=== PATIENT | female | born 1955 | race Caucasian/White ===

== ENCOUNTER 2020-04-11 13:04 | Outpatient (REF) | payer MEDICARE, MEDICAID, SELFPAY | END 2020-04-11 13:05 | disposition home or self-care (01) | LOC: HO.HAP 13:04 | PROVIDERS: Visit Provider Internal Medicine | DX: Z46.1 Encounter for fitting and adjustment of hearing aid (principal) | CPT/HCPCS: V5266 ==

== ENCOUNTER 2020-07-14 09:08 | Outpatient (REF) | payer MEDICARE, MEDICAID, SELFPAY | END 2020-07-14 09:09 | disposition home or self-care (01) | LOC: HO.HAP 09:08 | PROVIDERS: Visit Provider Internal Medicine | DX: Z46.1 Encounter for fitting and adjustment of hearing aid (principal) | CPT/HCPCS: V5266 ==

== ENCOUNTER 2020-08-07 09:24 | Outpatient (REF) | payer MEDICARE, MEDICAID, SELFPAY ==
--- NOTE | 2020-08-07 09:48 | MHC.AU.P13 ---
Hearing Instrument Follow-Up- Binaural Date of Visit: 08/07/20 Right Ear: Calcine Furnace Loader: Phonak Model: VIRTO V50-312 CANAL Serial Number: [id number] Repair Warranty: EXP 02/04/19 Loss and Damage Warranty: EXP 02/04/19 Battery Size: 312 Type of Wax Guard: CERUSTOP Left Ear: Calcine Furnace Loader: Phonak Model: VIRTO V50-312 CANAL Serial Number: [id number] RepairWarranty: EXP 02/04/19 Loss and Damage Warranty: EXP 02/04/19 Battery Size: 312 Type of Wax Guard: CERUSTOP Follow-Up Summary: Patient dropped off hearing aids reporting excessive battery drain in both - 2-3 days. Both aids sent to [facility] for repair. Bill to [place] when in. Signature: Provider: WARREN Arguelles-HIS
== END 2020-08-07 09:25 | disposition home or self-care (01) ==
LOC: HO.HAP 09:24
PROVIDERS: Visit Provider Internal Medicine
DX: Z13.89 Encounter for screening for other disorder (principal)

== ENCOUNTER 2020-08-16 08:42 | Outpatient (REF) | payer MEDICARE, MEDICAID, SELFPAY | END 2020-08-16 08:43 | disposition home or self-care (01) | LOC: HO.HAP 08:42 | PROVIDERS: Visit Provider Internal Medicine | DX: Z46.1 Encounter for fitting and adjustment of hearing aid (principal) | CPT/HCPCS: V5014 ==

== ENCOUNTER 2020-10-13 09:27 | Outpatient (REF) | payer MEDICARE, MEDICAID, SELFPAY | END 2020-10-13 09:28 | disposition home or self-care (01) | LOC: HO.HAP 09:27 | PROVIDERS: Visit Provider Internal Medicine | DX: Z46.1 Encounter for fitting and adjustment of hearing aid (principal) | CPT/HCPCS: V5266 ==

== ENCOUNTER 2021-01-12 08:53 | Outpatient (REF) | payer MEDICARE, MEDICAID, SELFPAY ==
--- NOTE | 2021-01-12 10:04 | MHC.AU.AHA ---
Adult Audiological Evaluation Date of Visit: 01/12/21 Reason for Appointment: Long-standing history of asymmetrical hearing loss. Patient arrives today to determine if there has been a change in hearing. She has noticed increased difficulty understanding people on the phone. Previous Hearing Test Results: At this clinic on 02/02/2020- Mild to moderate mixed hearing loss in the right ear. Severe rising to moderate mixed hearing loss in the left ear. Medical History: Medical History: Rheumatoid Arthritis, Fibromyaglia, Asthma, Removal of one parathyroid in July 2019, Use of Hydroxychloroquine Sulfate (which is potentially ototoxic) Hearing Instrument History- Right Ear: Burlesque Dancer: PhonZenter Model: VIRTO V50-312 CANAL Serial Number: [id number] Battery Size: 312 Repair Warranty: EXP 02/04/19 Loss and Damage Warranty: EXP 02/04/19 Dispensed By: [facility] Date of Fittin01/10/17 Hearing Instrument History- Left Ear: Burlesque Dancer: Phonak Model: EmbedlyO V50-312 CANAL Serial Number: [id number] Battery Size: 312 Warranty: EXP 02/04/19 Loss and Damage Warranty: EXP 02/04/19 Dispensed By: [facility] Date of Fittin01/10/17 Otoscopy: Right Ear: Unremarkable Left Ear: Unremarkable Hearing Evaluation: Transducer(s) Used: Insert Earphones Method: Conventional Audiometry Stimuli Used: Pure Tones Right Ear: Description of Hearing: Severe rising to moderate mixed hearing loss Left Ear: Description of Hearing: Mild to moderate mixed hearing loss Speech Recognition Threshold (SRT): Method Used: Recorded Lists Stimuli Used: Spondee Words Right Ear: 60 dBHL Left Ear: 30 dBHL Word Discrimination: Method: Recorded Lists Word Lists Used: NU-6/W-22 Right Ear: 100% at 100 dBHL Left Ear: 100% at 70 dBHL Most Comfortable Level (MCL): Right Ear: 100 dBHL Left Ear: 70 dBHL Aided Testing: Binaural aided word discrimination is 100% at 50 dBHL in soundfield Comparison: Compared to the most recent evaluation: Hearing is stable. Recommendations: Audiological re-evaluation in one year. See Hearing Aid Follow-Up note for more information. Patient reports feedback (buzzing sound) when she places the phone by her left ear. 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 Re-ran feedback commercial portfolio manager. Patient will let us know if problem persists. No additional programming changes made to the hearing aids. Diagnosis: Primary Diagnosis: H90.6 Mixed Hearing Loss, Bilateral Services Performed: Comprehensive Audiological Evaluation (CPT 69770) Signature: Provider: Luis M Cruz, CCC-A
--- NOTE | 2021-01-12 10:05 | MHC.AU.HFU ---
Hearing Instrument Follow-Up- Binaural Date of Visit: 01/12/21 Right Ear: Team Facilitator: Phonak Model: VIRTO V50-312 CANAL Serial Number: [id number] Repair Warranty: EXP 02/04/19 Loss and Damage Warranty: EXP 02/04/19 Battery Size: 312 Type of Wax Guard: CERUSTOP Dispensed By: [facility] Date of Fittin01/10/17 Left Ear: Team Facilitator: Phonak Model: VIRTO V50-312 CANAL Serial Number: [id number] Repair Warranty: EXP 02/04/19 Loss and Damage Warranty: EXP 02/04/19 Battery Size: 312 Type of Wax Guard: CERUSTOP Dispensed By: [facility] Date of Fittin01/10/17 Follow-Up Summary: Patient was seen today for audiological re-evaluation (see separate report for details). Hearing aid maintenance performed. Wax guards replaced. Vents cleaned. Microphones vacuumed. Small amount of debris vacuumed from battery compartments. Hearing aids are amplifying clearly. Patient reports feedback (buzzing sound) when she places the phone by her left ear. Feedback team manager was incomplete on the left side in [employer]. Re-ran feedback team manager. Patient will let us know if problem persists. No additional programming changes made to the hearing aids. Patient also reports that since her hearing aids were sent for repair in July, they battery drain has been better, but still not as good as originally. She is getting 4-5 days out of the batteries as opposed to 1-2 days just prior to sending the hearing aids out. Discussed that 5 days for a 312 battery is within normal expectations. She will let us know if the batteries start to drain in less than 5 days again. Also discussed that she may be eligible for new hearing aids in December of 2021. Discussed the new Bluetooth capabilities, which would help improve her listening on the cell phone and prevent feedback caused by holding the phone up to her ear. Recommendations: Recommendations: Hearing instrument follow-up or maintenance as needed. Diagnosis Code(s): Primary Diagnosis: H90.6 Mixed Hearing Loss, Bilateral Signature: Provider: Luis M Cruz, [facility]
== END 2021-01-12 08:54 | disposition home or self-care (01) ==
LOC: HO.SH 08:53
PROVIDERS: Visit Provider Internal Medicine
DX: Z46.1 Encounter for fitting and adjustment of hearing aid (principal); H90.6 Mixed conductive and sensorineural hearing loss, bilateral
CPT/HCPCS: 92557; 92593; V5266

== ENCOUNTER 2021-04-16 15:23 | Outpatient (REF) | payer MEDICARE, MEDICAID, SELFPAY | END 2021-04-16 15:24 | disposition home or self-care (01) | LOC: HO.HAP 15:23 | PROVIDERS: Visit Provider Internal Medicine | DX: Z46.1 Encounter for fitting and adjustment of hearing aid (principal); H90.6 Mixed conductive and sensorineural hearing loss, bilateral | CPT/HCPCS: V5266 ==

== ENCOUNTER 2021-07-17 10:28 | Outpatient (REF) | payer MEDICARE, MEDICAID, SELFPAY | END 2021-07-17 10:29 | disposition home or self-care (01) | LOC: HO.HAP 10:28 | PROVIDERS: Visit Provider Internal Medicine | DX: Z46.1 Encounter for fitting and adjustment of hearing aid (principal); H90.6 Mixed conductive and sensorineural hearing loss, bilateral | CPT/HCPCS: V5266 ==

== ENCOUNTER 2021-08-29 10:51 | Outpatient (REF) | payer MEDICARE, MEDICAID, SELFPAY | END 2021-08-29 10:52 | disposition home or self-care (01) | LOC: HO.HAP 10:51 | PROVIDERS: Visit Provider Internal Medicine | DX: Z46.1 Encounter for fitting and adjustment of hearing aid (principal); H90.6 Mixed conductive and sensorineural hearing loss, bilateral | CPT/HCPCS: 92592 ==

== ENCOUNTER 2021-09-13 09:22 | Outpatient (REF) | payer MEDICARE, MEDICAID, SELFPAY | END 2021-09-13 09:23 | disposition home or self-care (01) | LOC: HO.HAP 09:22 | PROVIDERS: Visit Provider Internal Medicine | DX: Z46.1 Encounter for fitting and adjustment of hearing aid (principal); H90.6 Mixed conductive and sensorineural hearing loss, bilateral | CPT/HCPCS: V5014 ==

== ENCOUNTER 2021-10-23 09:49 | Outpatient (REF) | payer MEDICARE, MEDICAID, SELFPAY | END 2021-10-23 09:50 | disposition home or self-care (01) | LOC: HO.HAP 09:49 | PROVIDERS: Visit Provider Internal Medicine | DX: Z46.1 Encounter for fitting and adjustment of hearing aid (principal); H90.6 Mixed conductive and sensorineural hearing loss, bilateral | CPT/HCPCS: V5266 ==

== ENCOUNTER → 2021-11-22 09:59 | Outpatient (BNVA) | payer OTHER, SELFPAY | PROVIDERS: PCP Internal Medicine; Visit Provider Physician Assistant Medical | DX: S80.212A Abrasion, left knee, initial encounter (principal); S60.512A Abrasion of left hand, initial encounter; S60.511A Abrasion of right hand, initial encounter; W01.0XXA Fall on same level from slipping, tripping and stumbling without subsequent striking against object, initial encounter; M25.522 Pain in left elbow | CPT/HCPCS: 73080; 73564; 99204 ==

== ENCOUNTER → 2021-11-28 09:18 | Outpatient (BNVA) | payer OTHER, SELFPAY | PROVIDERS: PCP Internal Medicine; Visit Provider Physician Assistant | DX: M25.562 Pain in left knee (principal); M25.522 Pain in left elbow; M79.632 Pain in left forearm; Z91.81 History of falling | CPT/HCPCS: 99204 ==

== ENCOUNTER → 2021-12-07 10:17 | Outpatient (BNVA) | payer OTHER, SELFPAY | PROVIDERS: PCP Internal Medicine; Visit Provider Physician Assistant | DX: M25.562 Pain in left knee (principal); M25.522 Pain in left elbow | CPT/HCPCS: 73610; 99215 ==

== ENCOUNTER 2021-12-13 08:30 | Outpatient (RCR) | payer OTHER, MEDICARE, MEDICAID, SELFPAY ==
--- NOTE | 2021-11-30 12:49 | MHC.OT.OEV ---
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 Pt sent her to [facility], XR taken.. Pt now out of work until MD follow up, referred to OT and PT PT appt next Friday. Significant Medical History: Osteopenia, OA, RA, Fibromyalgia, asthma Precautions/Contraindications: Patient Goals: Not be sore and be able to lift things Hand Dominance: Right Observations: QuickDASH Score: 56 Prior Level of Function and Occupation Self Care, Employment, Leisure: Indep in all areas.. Reports prior weakness on right > left guard range, 2 hrs/day [employer] Living Situation, Family and/or Social Support: , 34 and 24 yo home Current Level of Function and Occupation Self Care, Employment, Leisure: Minimal difficult with ADL Mod -severe diff with homemaking, sweeping , lifting groceries, knitting, Sleep: Mild difficulty falling asleep and staying asleep...Arm and leg pain Driving: Diff holding steering wheel with left Vision: Glasses Balance: Pain Assessment Pain Score: 6 Pain Scale Used: Numeric (0 - 10) Pain Location and Description: 3-6 left forearm Aggravating Factors: Lifting, moving the arm wrong. wearing elastic watch, arm swells and pain Alleviating Factors: Resting the arm Skin and Soft Tissue Assessment Skin and Soft Tissue: Comments: Avoiding elbow ext Nerve assessment Ulnar Nerve: Not Tested Median Nerve: Not Tested Radial Nerve: Not Tested Comments: Sensory Assessment Temperature: Light Touch: WNL Proprioception: Vibration: Comments: Edema Assessment Upper Extremity: WNL Lower Extremity: Comments: Dexterity Assessment Dexterity: Not Tested Comments: Special Tests Comments: AROM(PROM) Strength Cervical Cervical Flexion: Cervical Extension: Cervical Lateral Flexion: Cervical Rotation: Comments: Shoulder Flexion: Extension: Abduction: Internal Rotation: External Rotation: Comments: B/L WFL Flexion: Extension: Abduction: Internal Rotation: External Rotation: Comments: WFL Elbow Flexion: Extension: 15 deg Pronation: Supination: Comments: WFL Flexion: Extension: Pronation: Supination: Comments: Wrist Flexion: Extension: Ulnar Deviation: Radial Deviation: Comments: Flexion: Extension: Ulnar Deviation: Radial Deviation: Comments: Thumb Thumb CMC Flexion: Thumb MCP Flexion: Thumb IP Flexion: Radial Abduction: Palmar Abduction: [employer] (Kapandji 0-10): Comments: WNL Digits Index MCP: PIP: DIP: Long MCP: PIP: DIP: Ring MCP: PIP: DIP: Small MCP: PIP: DIP: Comments: WFL Gross Grasp: R 45 lb L 15 lb Lateral Pinch: Two-Point Pinch: Three-Jaw Shahram: Comments: 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 Patient demonstrates Patient verbalizes Barriers to Learning: None Readiness for Learning: Accepting Who was educated? 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 Pt is 8 days s/p fall on her left side . 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
--- NOTE | 2021-12-13 10:37 | MHC.OT.DC ---
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 Pt is indep with her HEP and resuming her homemaking activities Goals met Electronically Signed By: Shirley Retana OT CHT CLT Reviewed/agree with student documentation: N/A Therapist: Please Sign and return to therapist, thank you for your referral.
== END 2022-02-06 16:48 | disposition home or self-care (01) ==
LOC: HO.OT 08:30
PROVIDERS: PCP Internal Medicine; Visit Provider Physician Assistant Medical
DX: S56.912D Strain of unspecified muscles, fascia and tendons at forearm level, left arm, subsequent encounter (principal); M25.562 Pain in left knee
CPT/HCPCS: 97035; 97110; 97140; 97165

== ENCOUNTER → 2021-12-24 08:53 | Outpatient (BNVA) | payer OTHER, SELFPAY | PROVIDERS: PCP Internal Medicine; Visit Provider Physician Assistant Medical | DX: M25.562 Pain in left knee (principal); M25.522 Pain in left elbow; M79.632 Pain in left forearm; Z91.81 History of falling | CPT/HCPCS: 99213 ==

== ENCOUNTER 2022-01-04 07:51 | Outpatient (REF) | payer MEDICARE, MEDICAID, SELFPAY ==
--- NOTE | 2022-01-04 14:54 | MHC.AU.MED ---
Medical Clearance for Hearing Instrumentation Date: 01/04/22 Patient Name: Adela Canchola Date of : 1955 Primary Care Provider: Referring Provider: Liz Castro MD We have seen your patient on 01/04/22 and have determined that they are a candidate for amplification (See accompanying report). Specifically, they would benefit from: Hearing aid use in both ears There is a statute that addresses Medical Evaluation Requirements prior to fitting a patient with a hearing aid. According to [place] statute 265 CMR:6.03(1), (a) General. Except as provided in 265 CMR 6.03(1)(b), a legal process specialist shall not sell a hearing aid unless the prospective user has presented to the legal process specialist a written statement signed by a licensed physician that states that the patient's hearing loss has been medically evaluated and the patient may be considered a candidate for a hearing aid. The medical evaluation must have taken place within the preceding six months. Please note: Due to the [place] Statute referenced above, we cannot accept a signature other than that of a licensed physician. MANAGER CARDIAC and PA signatures cannot be accepted. I am in agreement with the above recommendation. There is no medical contraindication for hearing instrumentation. Physician Signature Date Physician Name (Printed)
--- NOTE | 2022-01-04 14:58 | MHC.AU.HAS ---
Hearing Aid Evaluation Date of Visit: 01/04/22 Historical Information: Description of Hearing: Left ear - Mild to moderately-severe mixed hearing loss Right ear - Severe to profound mixed hearing loss rising to moderately-severe at 8000 Hz Current personal amplification information, if applicable: Binaural 2017 Phonak Virto V 50-312 [id number] hearing aids Summary: Current aids are not meeting patient's communication needs and the batteries need to be changed approximately every 2-3 days. New rechargeable aids are recommended Hearing Aid Prescription: Based on the individual?s shared listening needs, communication environments, dexterity, desire for connectivity, and personal preferences, the following prescription for amplification has been made: Right ear: Historic Sites Registrar: ReSound Model: ITC-R Battery Size: Rechargeable Color: [place] with clear shell Left ear:Left ear prescription to be same as Right Hearing Aid above: Historic Sites Registrar: ReSound Model: ITC-R Battery Size: Rechargeable Color: [place] with clear shell Plan of Care: Patient wishes to purchase hearing aids as prescribed Action Taken/Action Needed: [place] Impressions Taken Prior authorization to be requested Medical Clearance to be requested from PCP/ENT Hearing Instrument Fitting to be scheduled when materials arrive Primary Diagnosis: H90.6 Mixed Hearing Loss, Bilateral Signature: Provider: Luis M Worrell, CCC-A
--- NOTE | 2022-01-25 07:33 | MHC.AU.AHA ---
Adult Audiological Evaluation Date of Visit: 01/04/22 Rating Specialist Used: Not Applicable Reason for Appointment: Audiologic re-evaluation to determine if a change in hearing has occurred as Adela's current hearing aids are weak, not meeting her communication needs, and the battery life have become very short. Previous Hearing Test Results: 01/12/2021 [facility] Right Ear - Severe rising to moderate mixed hearing loss with 100% speech understanding at 100 dB HL Left Ear - Mild to moderate mixed hearing loss with 100% speech discrimination at 70 dB HL Medical History: Medical History: Rheumatoid Arthritis, Fibromyaglia, Asthma, Removal of one parathyroid in July 2019, Use of Hydroxychloroquine Sulfate (which is potentially ototoxic) Medication List: Hydrochloriquine, Plaquenil, Omeprazole, Flovent Hearing Instrument History- Right Ear: Manufacturing Specialist: ClickShift Model: [place] V 50-312 Serial Number: [id number] Battery Size: 312 Repair Warranty: Loss and Damage Warranty: Dispensed By: [facility] Date of Fittin01/10/2017 Hearing Instrument History- Left Ear: Manufacturing Specialist: Notifixiousak Model: [place] V 50-312 Serial Number: [id number] Battery Size: 312 Warranty: Loss and Damage Warranty: Dispensed By: [facility] Date of Fittin01/10/2017 Otoscopy: Right Ear: Unremarkable Left Ear: Unremarkable Tympanometry: Tympanometry performed due to: History of conductive hearing loss Right Ear: Hypercompliant Middle Ear System (Type Ad) Left Ear: Hypercompliant Middle Ear System (Type Ad) Hearing Evaluation: Transducer(s) Used: Insert Earphones Bone Conduction Method: Conventional Audiometry Stimuli Used: Pure Tones Right Ear: Description of Hearing: Severe to profound mixed hearing loss 250-2000 Hz, rising to a moderately-severe mixed loss 0541-1229 Hz Left Ear: Description of Hearing: Mild to moderately-severe mixed hearing loss Speech Recognition Threshold (SRT): Method Used: Monitored Live Voice Stimuli Used: Spondee Words Right Ear: 60 dB HL Left Ear: 25 dB HL Word Discrimination: Method: Recorded Lists Word Lists Used: NU-6 Right Ear: 84% at 100 dB HL Left Ear: 96% at 65 dB HL Comparison: Compared to most recent evaluation: Hearing thresholds are stable for both ears. The right ear speech discrimination ability has decreased slightly. Recommendations: Trial with new amplification is recommended. Medical clearance from a physician is required before fitting. Hearing Aid Fitting will be scheduled when all materials arrive. Audiological re-evaluation in one year. Will send a reminder card. Diagnosis: Primary Diagnosis: H90.6 Mixed Hearing Loss, Bilateral Services Performed: Comprehensive Audiological Evaluation (CPT 26863) Tympanometry (CPT 51587) Signature: Provider: Luis M Worrell, THANIA-A
== END 2022-01-04 07:52 | disposition home or self-care (01) ==
LOC: HO.SH 07:51
PROVIDERS: Visit Provider Internal Medicine
DX: H90.6 Mixed conductive and sensorineural hearing loss, bilateral (principal)
CPT/HCPCS: 92557; 92567; 92591; V5275

== ENCOUNTER 2022-01-08 09:00 | Outpatient (RCR) | payer OTHER, SELFPAY ==
[2021-12-07 13:08] VITALS: BP 125/71; PULSE 82; O2SAT 93
--- NOTE | 2021-12-07 14:48 | MHC.PT.EP ---
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 SHE RESIDES W HER SPOUSE IN A 1 LEVEL HOME AND IS CURRENTLY OOW- SHE NOTES SHE HAS A H/O ARTHRITIS AND WAS ABLE TO PERFORM HER ADLs/ WORK DUTIES W RESPECT TO HER SXS PRIOR TO THIS INJURY. OBJECTIVE FINDINGS: LIMITED AROM LEFT HIP IR/ KNEE/ ANKLE DF, TIGHT PSOAS AND HS/CALF MM DAVE; DECR STRENGTH IN PROX / LUMBOPELVIC AND Lt LE, PAIN IN LEFT KNEE ,AND RESOLVING CONTUSION Lt ANT WATSON. FUNCTIONALLY, Pt DISPLAYS ALTERED AMB - SHE HAS COMPENSATORY GAIT AND TENDS TO FOREFOOT WT BEAR LEFT (ABSENT HEEL STRIKE), DECR STANDING GRISELDA( WT SHIFTS Rt), DIFFIC W TRANSFERS, BED MOB, SLEEPING/ SUPINE POSITIONING, AND DECR GRISELDA TO ADLs REQ INCR INCR LEs WT BEARING LEFT LE . Pt IS A VERY GOOD PT CANDIDATE TO ADDRESS THE ABOVE FINDINGS, PAIN MGMT, DEV A PROGR HEP, IMPROVE GAIT AND MAXIMIZING FUNCTIONAL INDEPENDENCE. Frequency and Duration: The patient will be seen 2 x WK x 5 WKS Short Term Goals: *Pt'S LEFT KNEE PAIN DECR TO 2-3/10 W REG ADLs IN 2 WKS *Pt DEMON IMPROVED LEFT KNEE / HIP/ ANKLE AROM-> TERMINAL EXTENSION IN 3 WKS *Pt DEMON IMPROVED GAIT MECH ON LEVEL AND STAIRS IN 2 WKS Experimental Welder Goals: Pt INDEP W HEP PROGRESSION AND SELF-SX MGMT STRATEGIES IN 5 WKS Pt RESUME REG ADLs EVIDENT W IMPROVED LEFI SCORE BY 5-8 POINTS (AT EVAL 21/80 ) IN 5 WKS Pt INCR LE STRENGTH BY 1 GRADE IN 5 WKS Treatment Plan: Modalities to reduce pain, spasms and effusion. Manual therapy to restore motion and function. Therapeutic exercise to improve strength and flexibility. Neuromuscular re-education for posture and balance. Therapeutic activities to return to functional activities of daily living. Electronically signed by: Zoila Castañeda PT Please sign and return to therapist. Thank you for your referral.
--- NOTE | 2022-01-09 10:01 | MHC.PT.DC ---
[facility] [place] Office [place] Office [place] Office [address] Laly Giron [address] [phone] F: [phone] F: [phone] F: [phone] F: [phone] Physical Therapy Discharge Report Diagnosis: LEFT KNEE STRAIN Date of Surgery: Date of Evaluation: 12/07/21 Date of Discharge: 01/08/22 Treatments to Date: 10 Cancellations to Date: No Shows to Date: Discharge Status: Achieved Goals Improved Function Independent with HEP Discharge Summary: Pt HAS PROGRESSED NICELY IN PT AND HAS MET HER PT GOALS AT THIS TIME, ADDRESSING HER LEFT KNEE PAIN- SHE IS INDEP AND COMPLIANT W HEP AND DEMON EFFICIENT GAIT/ FUNCTIONAL MOBILITY. Electronically signed by: Zoila Castañeda,PT Please sign and return to therapist. Thank you for your referral.
== END 2022-01-09 10:05 | disposition home or self-care (01) ==
LOC: HO.PT 09:00
PROVIDERS: PCP Internal Medicine; Visit Provider Physician Assistant Medical
DX: S56.91 Strain of unspecified muscles, fascia and tendons at forearm level (principal); M25.562 Pain in left knee
CPT/HCPCS: 97110; 97116; 97162; 97530

== ENCOUNTER 2022-02-04 07:47 | Outpatient (REF) | payer MEDICARE, MEDICAID, SELFPAY ==
--- NOTE | ~2022-02-04 | XR_ITS ---
EXAMINATION: XR KNEE AP STANDING CLINICAL INFORMATION: Knee pain COMPARISON: Radiographs left knee 11/22/2021, right knee radiographs 02/16/2011. TECHNIQUE: AP bilateral standing view of the knees was obtained. FINDINGS: Right: Mild narrowing medial knee joint compartment with borderline marginal osteophytes medial femoral condyle and tibial plateau. No erosion or chondrocalcinosis. No subchondral sclerosis. Bony mineralization normal. Mild spurring or mineralization near proximal medial collateral ligament which may be related to remote injury. Findings are new from prior radiographs 2010. Left: No joint narrowing, erosions, or chondrocalcinosis. Normal mineralization. No destructive process. There is small corticated density overlying the anterior lateral prepatellar soft tissues, similar to prior study. XR/XR knee standing BI IMPRESSION: Right: -Mild narrowing medial knee joint compartment, new from prior imaging 2010. -Spurring versus mineralization near the proximal medial collateral ligament, likely related to remote sprain, new from prior imaging 2010. Left: -No joint narrowing or erosion.
== END 2022-02-04 07:48 | disposition home or self-care (01) ==
LOC: HO.HOSX 07:47
PROVIDERS: Visit Provider Physician Assistant
DX: S80.12XA Contusion of left lower leg, initial encounter (principal)
CPT/HCPCS: 73565; 99202

== ENCOUNTER → 2022-02-14 09:24 | Outpatient (BNVA) | payer OTHER, SELFPAY | PROVIDERS: PCP Internal Medicine; Visit Provider Physician Assistant | DX: M79.662 Pain in left lower leg (principal); Z91.81 History of falling | CPT/HCPCS: 99214 ==

== ENCOUNTER → 2022-03-15 08:54 | Outpatient (BNVA) | payer OTHER, SELFPAY | PROVIDERS: PCP Internal Medicine; Visit Provider Physician Assistant | DX: M79.662 Pain in left lower leg (principal); Z91.81 History of falling | CPT/HCPCS: 99213 ==

== ENCOUNTER → 2022-03-20 08:34 | Outpatient (BNVA) | payer OTHER, SELFPAY | PROVIDERS: PCP Internal Medicine; Visit Provider Anesthesiology | DX: S80.12XA Contusion of left lower leg, initial encounter (principal); M17.12 Unilateral primary osteoarthritis, left knee; M76.32 Iliotibial band syndrome, left leg | CPT/HCPCS: 99202 ==

== ENCOUNTER → 2022-03-21 15:06 | Outpatient (BNVA) | payer OTHER, SELFPAY | PROVIDERS: PCP Internal Medicine; Visit Provider Physician Assistant | DX: M79.662 Pain in left lower leg (principal); Z91.81 History of falling | CPT/HCPCS: 99213 ==

== ENCOUNTER 2022-03-27 14:28 | Outpatient (REF) | payer MEDICARE, MEDICAID, SELFPAY ==
--- NOTE | 2022-03-27 15:12 | MHC.AU.HFA ---
Hearing Instrument Fitting- Adult- Binaural Date of Visit: 03/27/22 Hearing Instruments Dispensed: Right Ear: Raw Mill Operator: ReSound Model: HS RT7 ITE-DWC-HP Serial Number: [id number] Repair Warranty: 04/07/2025 Loss and Damage Warranty: 04/07/2025 Service Plan: 03/27/2023 Battery Size: Rechargeable Color: [place] with clear shell Type of Wax Guard: ReSound Wax Guards Left Ear: Raw Mill Operator: ReSound Model: HS RT7 ITE-DWC-MP Serial Number: [id number] Repair Warranty: 04/07/2025 Loss and Damage Warranty: 04/07/2025 Service Plan: 03/27/2023 Battery Size: Rechargeable Color: [place] with clear shell Type of Wax Guard: ReSound Wax Guards Summary of Fitting: Feedback calibration run. Verifit performed and levels adjusted to better reach targets. Patient still felt like the right side was too loud and the left side was too soft. Brought the right side down by 5 and left side up by 3, per patient's feedback. Patient was pleased with the adjustments. Patient initially reported that when she talked or I talked, she could feel a vibration in her right ear. After adjustments, this was lessened, and by the end of the appointment she did not perceive this anymore. Instructed patient to let us know if this continues. Hearing aid care and maintenance were discussed and practiced. Patient does not have a phone that can support Bluetooth at the moment, but is planning on getting one in the near future. She will let us know if she needs assistance in setting up Bluetooth. Recommendations: Patient is an experienced hearing aid user and will contact us if follow-up is needed. Diagnosis Code(s): Primary Diagnosis: H90.3 Bilateral Sensorineural Hearing Loss Signature: Provider: Luis M Cruz, CCC-A
== END 2022-03-27 14:29 | disposition home or self-care (01) ==
LOC: HO.HAP 14:28
PROVIDERS: Visit Provider Internal Medicine
DX: Z46.1 Encounter for fitting and adjustment of hearing aid (principal); H90.3 Sensorineural hearing loss, bilateral
CPT/HCPCS: V5011; V5020; V5160; V5259

== ENCOUNTER 2022-04-15 10:07 | Outpatient (REF) | payer MEDICARE, MEDICAID, SELFPAY ==
[2022-04-15 11:59] LABS: Anion Gap 16 (12-20); Blood Urea Nitrogen 12 mg/dL (9-16); Calcium 9.6 mg/dL (8.4-10.2); Carbon Dioxide 28 mmol/L (22-29); Chloride 103 mmol/L (96-108); Estimated Glomerular Filt Rate > 60; Sodium 142 mmol/L (135-145)
== END 2022-04-15 10:08 | disposition home or self-care (01) ==
LOC: HO.HMGCLDS 10:07
PROVIDERS: Absent Provider Internal Medicine Hypertension Specialist; PCP Internal Medicine; Visit Provider Internal Medicine
DX: R31.29 Other microscopic hematuria (principal)
CPT/HCPCS: 36415; 80051; 82310; 82565; 84520

== ENCOUNTER → 2022-05-15 08:34 | Outpatient (BNVA) | payer OTHER, MEDICARE, MEDICAID, SELFPAY | PROVIDERS: PCP Internal Medicine; Visit Provider Anesthesiology | DX: S80.12XA Contusion of left lower leg, initial encounter (principal); W01.0XXA Fall on same level from slipping, tripping and stumbling without subsequent striking against object, initial encounter; Y93.01 Activity, walking, marching and hiking; Y92.9 Unspecified place or not applicable; Y99.8 Other external cause status; M17.12 Unilateral primary osteoarthritis, left knee; G90.522 Complex regional pain syndrome I of left lower limb; G89.4 Chronic pain syndrome | CPT/HCPCS: 99212 ==

== ENCOUNTER → 2022-05-22 14:35 | Outpatient (BNVA) | payer OTHER, SELFPAY | PROVIDERS: PCP Internal Medicine; Visit Provider Physician Assistant | DX: G89.29 Other chronic pain (principal); M79.662 Pain in left lower leg | CPT/HCPCS: 99203 ==

== ENCOUNTER 2022-06-08 07:34 | Outpatient (REF) | payer MEDICARE, MEDICAID, SELFPAY ==
[2022-06-08 11:14] LABS: MANUAL DIFF FLAG NO
[2022-06-08 11:20] LABS: Basophils Percent Auto 0.5 % (0-2); Eosinophils Absolute Auto 0.2 X10*3/uL (0.0-0.4); Eosinophils Percent Auto 5.3 % (0-4); Hemoglobin 13.4 g/dl (12.0-16.0); Imm Gran Abs Auto 0.01 X10*3/uL (0.00-0.03); Imm Gran Pct Auto 0.3 % (0.0-0.4); Lymphocytes Absolute Auto 1.6 X10*3/uL (1.2-4.9); Lymphocytes Percent Auto 43.4 % (20-40); Mean Corpuscular HGB Conc 31.9 g/dl (31.0-35.0); Mean Corpuscular Hemoglobin 28.8 pg (27.0-33.0); Mean Corpuscular Volume 90.3 fL (80.0-98.0); Mean Platelet Volume 10.8 fL (9.4-12.3); Monocytes Absolute Auto 0.4 X10*3/uL (0.1-1.2); Monocytes Percent Auto 11.2 % (2-11); Neutrophils Absolute Auto 1.5 x10*3/uL (2.0-8.3); Neutrophils Percent Auto 39.3 % (45-73); Platelet Count 264 X10*3/uL (160-400); Red Blood Count 4.65 X10*6/uL (4.20-5.50); Red Cell Distribution Width 14.1 % (11.0-16.0); White Blood Count 3.8 X10*3/uL (4.8-10.8)
[2022-06-08 12:05] LABS: Alanine Aminotransferase 17 U/L (0-31); Albumin Level 4.1 g/dL (3.5-5.0); Alkaline Phosphatase 97 U/L (39-117); Anion Gap 12 (12-20); Aspartate Amino Transferase 17 U/L (5-31); Bilirubin Total 0.5 mg/dL (0.0-1.0); Blood Urea Nitrogen 12 mg/dL (9-16); Calcium 9.3 mg/dL (8.4-10.2); Carbon Dioxide 28 mmol/L (22-29); Chloride 108 mmol/L (96-108); Cholesterol 211 mg/dL; Estimated Glomerular Filt Rate > 60; Glucose Fasting 86 mg/dL (60-99); HDL Cholesterol 60 mg/dL; LDL Cholesterol Calculated 135 mg/dl; Potassium 4.7 mmol/L (3.3-5.1); Sodium 143 mmol/L (135-145); TSH reflex Free T4 2.97 uIU/mL (0.32-4.0); Total Protein 6.7 g/dL (6.5-8.0); Triglycerides 83 mg/dL
== END 2022-06-08 07:35 | disposition home or self-care (01) ==
LOC: HO.HMGCLDS 07:34
PROVIDERS: PCP Internal Medicine; Visit Provider Internal Medicine
DX: Z00.01 Encounter for general adult medical examination with abnormal findings (principal); K21.9 Gastro-esophageal reflux disease without esophagitis; J45.40 Moderate persistent asthma, uncomplicated; E66.09 Other obesity due to excess calories; M06.9 Rheumatoid arthritis, unspecified
CPT/HCPCS: 36415; 80053; 80061; 84443; 85025

== ENCOUNTER → 2022-06-20 08:36 | Outpatient (BNVA) | payer OTHER, SELFPAY | PROVIDERS: PCP Internal Medicine; Visit Provider Physician Assistant | DX: M79.662 Pain in left lower leg (principal); Z91.81 History of falling | CPT/HCPCS: 99214 ==

== ENCOUNTER 2022-07-25 14:10 | Outpatient (REF) | payer OTHER, SELFPAY ==
--- NOTE | 2022-07-25 08:15 | EMG_ITS ---
Left tibial and peroneal motor studies were performed. Left superficial peroneal, sural, and median and lateral plantar sensory studies were performed. Tibial H-reflex was obtained, and paraspinal muscles were tested with a needle. IMPRESSION: 1. 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 2. 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 MD DHIRAJ Boykin/EDDIE / [id number]
== END 2022-07-25 14:11 | disposition home or self-care (01) ==
LOC: HO.NEURO 14:10
PROVIDERS: PCP Internal Medicine; Visit Provider Physician Assistant Medical
DX: M79.662 Pain in left lower leg (principal); G89.29 Other chronic pain; Z91.81 History of falling
CPT/HCPCS: 95886; 95910

== ENCOUNTER → 2022-07-31 08:40 | Outpatient (BNVA) | payer OTHER, SELFPAY | PROVIDERS: PCP Internal Medicine; Visit Provider Physician Assistant | DX: G60.8 Other hereditary and idiopathic neuropathies (principal); G62.89 Other specified polyneuropathies | CPT/HCPCS: 99215 ==

== ENCOUNTER 2022-08-09 09:35 | Outpatient (REF) | payer OTHER, SELFPAY ==
--- NOTE | 2022-08-09 10:14 | MHC.AU.HA3 ---
Hearing Instrument Follow-Up- Binaural Date of Visit: 08/09/22 Right Ear: Make, Model, Color, Serial Number: ReSound HS [id number] [id number]-DWC-HP SN: [id number] Color: [place] with clear shells Photo Machine Operator Repair Warranty: 04/07/2025 Photo Machine Operator Loss and Damage Warranty: 04/07/2025 [facility] Service Plan: 03/27/2023 Battery Size: Rechargeable Type of Wax Guard: ReSound Wax Guards Dispensed By: [facility] Date of Fittin03/27/2022 Left Ear: Make, Model, Color, Serial Number: ReSound HS [id number] ITE-DWC-HP SN: [id number] Color: [place] with clear shells Photo Machine Operator Repair Warranty: 04/07/2025 Photo Machine Operator Loss and Damage Warranty: 04/07/2025 [facility] Service Plan: 03/27/2023 Battery Size: Rechargeable Type of Wax Guard: ReSound Wax Guards Dispensed By: [facility] Date of Fittin03/27/2022 Follow-Up Summary: Adela reported that her hearing aids sound too low. She noticed that she is asking for more repetition than usual. Cleaned hearing aids, vacuumed microphones, and replaced wax guards. A listening check demonstrated that both hearing aids are working well. Increased overall volume of both hearing aids, more so in the right. Adela noted significant improvement with no feedback noted in office. Recommendations:Hearing instrument maintenance in 6 months, or sooner if needed. Recommendations (Other): Adela now has [employer] insurance. Discussed that [facility] does not accept [facility] for hearing aid services. Adela knows that following the [facility] service agreement which ends on 03/27/2023, she will need to find a provider that is contracted with [facility]. Diagnosis Code(s): Primary Diagnosis: H90.6 Mixed Hearing Loss, Bilateral Signature: Provider: Cande Toth, [facility]
== END 2022-08-09 09:36 | disposition home or self-care (01) ==
LOC: HO.HAP 09:35
PROVIDERS: Visit Provider Internal Medicine
DX: Z13.89 Encounter for screening for other disorder (principal)

== ENCOUNTER → 2022-09-04 08:54 | Outpatient (BNVA) | payer OTHER, SELFPAY | PROVIDERS: PCP Internal Medicine; Visit Provider Physician Assistant | DX: S86.392D Other injury of muscle(s) and tendon(s) of peroneal muscle group at lower leg level, left leg, subsequent encounter (principal); W18.30XD Fall on same level, unspecified, subsequent encounter | CPT/HCPCS: 99213 ==

== ENCOUNTER → 2022-10-09 08:46 | Outpatient (BNVA) | payer OTHER, SELFPAY | PROVIDERS: PCP Internal Medicine; Visit Provider Physician Assistant | DX: G57.32 Lesion of lateral popliteal nerve, left lower limb (principal); Z91.81 History of falling | CPT/HCPCS: 99214 ==

== ENCOUNTER 2022-10-25 10:09 | Outpatient (REF) | payer OTHER, SELFPAY | END 2022-10-25 10:10 | disposition home or self-care (01) | LOC: HO.HAP 10:09 | PROVIDERS: Visit Provider Internal Medicine | DX: Z13.89 Encounter for screening for other disorder (principal) ==

== ENCOUNTER → 2022-11-13 08:46 | Outpatient (BNVA) | payer OTHER, SELFPAY | PROVIDERS: PCP Internal Medicine; Visit Provider Physician Assistant | DX: M76.72 Peroneal tendinitis, left leg (principal); Z91.81 History of falling | CPT/HCPCS: 99213 ==

== ENCOUNTER 2022-11-19 12:53 | Outpatient (REF) | payer OTHER, SELFPAY | END 2022-11-19 12:54 | disposition home or self-care (01) | LOC: HO.HAP 12:53 | PROVIDERS: Visit Provider Internal Medicine | DX: Z13.89 Encounter for screening for other disorder (principal) ==

== ENCOUNTER 2022-12-06 16:29 | Outpatient (REF) | payer SELFPAY | END 2022-12-06 16:30 | disposition home or self-care (01) | LOC: HO.HAP 16:29 | PROVIDERS: Visit Provider Internal Medicine | DX: Z13.89 Encounter for screening for other disorder (principal) ==

== ENCOUNTER 2022-12-11 10:15 | Outpatient (REF) | payer SELFPAY | END 2022-12-11 10:16 | disposition home or self-care (01) | LOC: HO.HAP 10:15 | PROVIDERS: Visit Provider Internal Medicine | DX: Z13.89 Encounter for screening for other disorder (principal) ==

== ENCOUNTER → 2022-12-18 08:57 | Outpatient (BNVA) | payer OTHER, SELFPAY | PROVIDERS: PCP Internal Medicine; Visit Provider Physician Assistant | DX: G57.92 Unspecified mononeuropathy of left lower limb (principal); Z91.81 History of falling | CPT/HCPCS: 99213 ==

== ENCOUNTER 2022-12-24 09:05 | Outpatient (REF) | payer SELFPAY ==
--- NOTE | 2022-12-24 11:27 | MHC.AU.HA3 ---
Hearing Instrument Follow-Up- Binaural Date of Visit: 12/24/22 Right Ear: Make, Model, Color, Serial Number: ReSound HS [id number] ITE-DWC-HP SN: [id number] Color: [place] with clear shells Otr Owner Operator Truck Driver Repair Warranty: 04/07/2025 Otr Owner Operator Truck Driver Loss and Damage Warranty: 04/07/2025 [facility] Service Plan: 03/27/2023 Battery Size: Rechargeable Type of Wax Guard: ReSound Wax Guards Dispensed By: [facility] Date of Fittin03/27/2022 Left Ear: Make, Model, Color, Serial Number: ReSound HS [id number] ITE-DWC-HP SN: [id number] Color: [place] with clear shells Otr Owner Operator Truck Driver Repair Warranty: 04/07/2025 Otr Owner Operator Truck Driver Loss and Damage Warranty: 04/07/2025 [facility] Service Plan: 03/27/2023 Battery Size: Rechargeable Type of Wax Guard: ReSound Wax Guards Dispensed By: [facility] Date of Fittin03/27/2022 Follow-Up Summary: Adela returned to parts picker her repaired hearing aids and laborer vineyard. Settings were restored from 12/06/22 with good sound quality noted in office. Confirmed laborer vineyard was working successfully and hearing aids turned on when removing from laborer vineyard. After inserting the hearing aids in her ears after removing from the laborer vineyard, Adela reported weak sound quality. Adela has multiple programs in her hearing aids with a short button press for program change; however, she reportedly was not aware of this. It is likely that Adela was unknowingly/accidently pressing the program change button while inserting the hearing aids. Adela did not want the program button disabled or extra programs deleted. She will be more aware when inserting the hearing aids. Otherwise, she is satisfied with the settings in Program 1. Recommendations: Hearing instrument follow-up or maintenance as needed. Diagnosis Code(s): Primary Diagnosis: H90.6 Mixed Hearing Loss, Bilateral Signature: Provider: Cande Toth, [facility]
== END 2022-12-24 09:06 | disposition home or self-care (01) ==
LOC: HO.HAP 09:05
PROVIDERS: Visit Provider Internal Medicine
DX: Z13.89 Encounter for screening for other disorder (principal)

== ENCOUNTER 2023-01-20 12:45 | Outpatient (AMB) | payer OTHER, SELFPAY ==
[2023-01-20 13:16] VITALS: BP 122/64; PULSE 101; O2SAT 97; BMI 39.7
--- NOTE | 2023-01-20 13:16 | MHC.OFFVIS ---
Intake Vital Signs 01/20/23 13:16 Height 5 ft 3 in Weight 224 lb BMI 39.7 BP 122/64 Blood Pressure Location Rt brachial Position Sitting Pulse 101 H Pulse Source Pulse Oximeter Pulse Oximetry (%) 97 Intake Visit Reasons: [id number] L peronial neuropathy Intake Note: Patient presents for neuropathy Allergies No Known Allergies Allergy (Verified 01/20/23 13:18) Medication List - Last Reconciled 01/20/23 by Swathi Torres MD acetaminophen (Tylenol Extra Strength) 500 mg PO QID PRN albuterol sulfate 90 mcg/actuation (Ventolin HFA) 1 inh inhalation Q6H 30 days fluticasone propionate 220 mcg/actuation (Flovent HFA) 2 puffs inhalation BID 30 days hydroxychloroquine 200 mg PO BID omeprazole 20 mg PO DAILY 90 days HPI HPI Comments History of Present Illness Details She had a fall on Nov 22 2021 when she was at work.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 Her UE improved. She had MRI knee which showed severe arthritis .. But her symptoms were mainly in the lateral leg below the knee.she has pain numbness , tingling in her left lateral leg. She had nerve conduction study - Moderate to severe peroneal neuropathy left and left tibial neuropathy. she reports pain and weakness along with other sensory symptoms which affects her walking . 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 Cognitive needs: No Hearing needs: Yes Vision needs: Yes Review of Systems Const Denies chills and Denies fever(s) ENT Denies epistaxis and Denies nasal discharge Card Denies chest pain Resp Denies chest congestion, Denies cough and Denies hemoptysis GI Denies diarrhea and Denies nausea Skin/Breast Denies rash Neuro Reports no additional complaints Psych Reports no additional complaints Endo Reports no additional complaints Physical Exam Vital Signs: Last Vital Signs Pulse 101 H 01/20/23 13:16 BP 122/64 01/20/23 13:16 Pulse Ox 97 01/20/23 13:16 BMI result Body Mass Index 39.7 Const General: cooperative and comfortable Nutritional Appearance: obese Orientation/consciousness: patient oriented x3 Neuro Other: Left lower extremity- weakness os foot and toe dorsiflexion, adduction, knee extension Hyperalgesia in left lateral leg gait- foot drop left General: patient oriented x3, tone normal and moves all extremities Cranial nerves: Yes Facial sensation intact/muscles of mastication intact, Yes Intact sense of smell present, Yes Bilaterally intact EOM present, Yes Nystagmus not present, Yes Normal facial strength present and Yes Symmetric palate elevation present Cognition (Neuro): normal cognition Gait exam (Neuro): Antalgic gait present Deep tendon reflexes (DTR's): Right triceps reflex intensity grade: 1+, Left triceps reflex intensity grade: 1+, Rt Biceps (C5, C6): 1+, Left biceps reflex intensity grade: 1+, Right brachioradialis reflex intensity grade: 1+, Left brachioradialis reflex intensity grade: 1+, Right patellar reflex intensity grade: 1+, Left patellar reflex intensity grade: 1+, Right ankle reflex intensity grade: 0 and Left ankle reflex intensity grade: 0 Coordination: [id number] test normal Psych Appearance: grossly normal Assessment & Plan Assessment & Plan (1) 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
== END 2023-01-20 13:44 | disposition home or self-care (01) ==
PROVIDERS: Visit Provider Psychiatry & Neurology Neurology
DX: G57.02 Lesion of sciatic nerve, left lower limb (principal); G00-G99 Diseases of the nervous system
CPT/HCPCS: 99204

== ENCOUNTER → 2023-01-20 12:45 | Outpatient (BNVA) | payer OTHER, SELFPAY | PROVIDERS: Visit Provider Psychiatry & Neurology Neurology | DX: G57.02 Lesion of sciatic nerve, left lower limb (principal); G00-G99 Diseases of the nervous system | CPT/HCPCS: 99202 ==

== ENCOUNTER → 2023-02-05 08:32 | Outpatient (BNVA) | payer OTHER, SELFPAY | PROVIDERS: PCP Internal Medicine; Visit Provider Physician Assistant | DX: M79.662 Pain in left lower leg (principal); G57.92 Unspecified mononeuropathy of left lower limb | CPT/HCPCS: 99213 ==

== ENCOUNTER 2023-02-21 13:00 | Outpatient (RCR) | payer OTHER, SELFPAY ==
--- NOTE | 2023-01-31 14:04 | MHC.PT.EP ---
[facility] [place] [facility] [place] [facility] [address] Laly Giron [address] [phone] F: [phone] F: [phone] F: [phone] F: [phone] Physical Therapy Plan of Care Date of Evaluation: Date of Surgery: NA Diagnosis: Lesion of the sciatic nerve, L lower limb, foot drop Assessment: Adela is a 67 year old female who is referred to PT for Lesion of the sciatic nerve, L lower limb, foot drop . She reports of injuring her L LE secondary to a fall about a 1.5 years back. She fell on her L side of the leg. Since then she has been having tingling, numbness and pain down L barajas traveling up to L toes. She has had PT for L Knee pain about a years back and had no change of symptoms with this. On PT examination presents with 5-9/10 pain along L lateral barajas, symptoms worse with standing, walking and humidity, increased TTP along fibula, numbness in the bottom of lateral aspect of foot, all hip knee and ankle ROM WNL, mildly decreased strength of L LE, altered posture, balance and gait. She is independent with ADLS but does them slowly due to pain. She has been out of work since the injury. She would benefit from skilled PT to address the aforementioned impairments and improve tolerance to functional activities. Frequency and Duration: The patient will be seen 2/week for 4 weeks Short Term Goals: 1. Pt will have 50% decrease in pain which will enable to her tolerate sitting for 30 minutes without pain in 2 weeks. 2. Pt will be able to tolerate palpation along L fibula without pain which will enable her to sleep with L LE extended in 3 weeks. Sas Developer Analyst Goals: 1. Pt will demonstrate increase in muscle strength by 1 grade which will enable her to tolerate standing and walking for 30 minutes in 4 weeks. 2. Pt will be independent with all HEP for symptom management and maintenance following d/c in 4 weeks. Treatment Plan: Modalities to reduce pain, spasms and effusion. Manual therapy to restore motion and function. Therapeutic exercise to improve strength and flexibility. Neuromuscular re-education for posture and balance. Therapeutic activities to return to functional activities of daily living. Electronically signed by: Tania Stuart PT DPT Please sign and return to therapist. Thank you for your referral.
--- NOTE | 2023-02-26 10:47 | MHC.PT.DC ---
[facility] [place] Office [place] Office [place] Office [address] Laly Giron [address] [phone] F: [phone] F: [phone] F: [phone] F: [phone] Physical Therapy Discharge Report Diagnosis: Lesion of the sciatic nerve, L lower limb, foot drop Date of Surgery: NA Date of Evaluation: 01/31/23 Date of Discharge: 02/26/23 Treatments to Date: 6 Cancellations to Date: 0 No Shows to Date: 0 Discharge Status: Recommend MD Follow-up Discharge Summary: Adela completed 6 PT visits and has had no improvements in the 6 visits she has been here. She had mild relief in symptoms with kinesio tape however had a skin reaction to and we were unable to continue taping her. She did not find any benefit with stretches, strengthening and e-stim. Due to lack of improvement she is being d/c from PT. Electronically signed by: Tania Stuart, PT DPT Please sign and return to therapist. Thank you for your referral.
== END 2023-02-26 10:48 | disposition home or self-care (01) ==
LOC: HO.PT 13:00
PROVIDERS: PCP Internal Medicine; Visit Provider Psychiatry & Neurology Neurology
DX: G57.02 Lesion of sciatic nerve, left lower limb (principal)
CPT/HCPCS: 97110; 97112; 97161

== ENCOUNTER 2023-03-19 13:30 | Outpatient (REF) | payer OTHER, SELFPAY ==
--- NOTE | 2023-03-19 13:33 | EMG_ITS ---
Chief complaint: Mechanical fall October 2021 with significant bruising on left lower lateral leg but no fracture. EMG by Dr. Castro 06/2022 reviewed. No foot drop seen today. Reason for referral: Evaluate for peroneal neuropathy Referred by: Dr. Torres Procedure done: Left lower extremity NCS/EMG Precautions and/or limitations: None The limb temperature was monitored continuously and remained between 32-36 degrees C during the performance of the NCS. Nerve Conduction Studies Anti Sensory Summary Table ?Stim Site NR Onset (ms) Norm Onset (ms) Peak (ms) Norm Peak (ms) O-P Amp (?V) Norm O-P Amp Site1 Site2 Delta-0 (ms) Dist (cm) Niles (m/s) Norm Niles (m/s) Left Sup Peron Anti Sensory (Ankle) Lateral Leg ? 1.5 2.6 <4.4 4.8 >5.0 Lateral Leg Ankle 1.5 14.0 93 Left Sural Anti Sensory (Lat Mall) Calf ? 2.4 3.2 <4.0 11.4 >5.0 Calf Lat Mall 2.4 14.0 58 Motor Summary Table ?Stim Site NR Onset (ms) Norm Onset (ms) O-P Amp (mV) Norm O-P Amp iAmp (mV) Amp (1st) (%) Site1 Site2 Delta-0 (ms) Dist (cm) Niles (m/s) Norm Niles (m/s) Left Peroneal Motor (Ext Dig Brev) Ankle ? 6.7 <4.0 2.6 >2.5 3.1 100.0 Ankle Ext Dig Brev 6.7 0.0 B Fib ? 12.3 1.6 2.2 61.5 B Fib Ankle 5.6 32.0 57 >40 Poplt ? 12.0 1.8 2.2 69.2 Poplt B Fib 0.3 2.5 83 >40 Left Peroneal TA Motor (Tib Ant) Fib Head ? 3.5 <4.2 2.4 2.6 100.0 Fib Head Tib Ant 3.5 0.0 Poplit ? 3.9 <5.7 2.4 2.6 100.0 Poplit Fib Head 0.4 2.5 63 >40.5 Left Tibial Motor (Abd Hernandez Brev) Ankle ? 4.7 <5 5.6 >2.5 7.1 100.0 Ankle Abd Hernandez Brev 4.7 0.0 Knee ? 10.7 5.7 6.9 101.8 Knee Ankle 6.0 36.0 60 >40 EMG ?Side Muscle Nerve Root Ins Act Fibs Psw Amp Dur Poly Recrt Int Pat Comment Left AbdHallucis MedPlantar S1-2 Nml Nml Nml Nml Nml 0 Nml Complete Left AntTibialis Dp Br Peron L4-5 Nml Nml Nml Nml Nml 0 Nml Complete Left PostTibialis Tibial L5, S1 Nml Nml Nml Nml Nml 0 Nml Complete Left MedGastroc Tibial S1-2 Nml Nml Nml Nml Nml 0 Nml Complete Left VastusMed Femoral L2-4 Nml Nml Nml Nml Nml 0 Nml Complete Left Peroneus Long Sup Br Peron L5-S1 Incr 1+ 1+ Nml Nml 0 Nml Complete Paraspinal EMG ?Side Muscle Nerve Root Ins Act Fibs Psw Comment Left Lumbar Upper Rami Nml Nml Nml Left Lumbar Mid Rami Nml Nml Nml Left Lumbar Lower Rami Nml Nml Nml FINDINGS: Left peroneal nerve while recording at EDB muscle showed prolonged distal latency, normal amplitude and normal conduction velocity. Confirmed by retesting left peroneal nerve recording at the TA muscle, no conduction block across fibula. Left superficial peroneal nerve showed normal peak latency, but small amplitude. Left tibial and sural nerves were within normal. Concentric needle EMG was performed in selected muscles of the left lower extremity and lumbar paraspinals. Study revealed Signs of electric abnormalities as shown in the table below. Left peroneal longus muscle showed increased insertional activity, PSWs and fibrillations. No denervation seen in lumbar paraspinals. IMPRESSION: 1. This is an abnormal study. 2. Given abnormalities seen on left peroneal SNAP and peroneal CMAP, and denervation seen on left peroneus longus muscle, there is evidence for left common peroneal neuropathy. 3. There is no electrodiagnostic evidence for tibial neuropathy, lumbosacral plexopathy, lumbar radiculopathy, or peripheral neuropathy. CLINICAL COMMENT: There is improvement when compared to previous NCS/EMG in June 2022. Thank you for your kind referral. Jane Magallon MD, YAO Board Certified, [place] Board [employer] and Rehabilitation (ABPMR) Board Certified, [place] Board of Electrodiagnostic Medicine (ABEM) CODIN [id number] LUCIEN
== END 2023-03-19 13:31 | disposition home or self-care (01) ==
LOC: HO.NEURO 13:30
PROVIDERS: PCP Internal Medicine; Visit Provider Psychiatry & Neurology Neurology
DX: G57.02 Lesion of sciatic nerve, left lower limb (principal)
CPT/HCPCS: 95886; 95908

== ENCOUNTER → 2023-03-19 13:33 | Outpatient (BNV) | payer OTHER, SELFPAY | PROVIDERS: PCP Internal Medicine; Visit Provider Physical Medicine & Rehabilitation | DX: S84.12XA Injury of peroneal nerve at lower leg level, left leg, initial encounter (principal) | CPT/HCPCS: 95886; 95909 ==

== ENCOUNTER 2023-03-26 10:28 | Outpatient (AMB) | payer OTHER, SELFPAY ==
--- NOTE | 2023-03-26 10:32 | A.OFFVIS_ITS ---
Intake Vital Signs 03/26/23 10:33 Height 5 ft 3 in Weight 225 lb 8 oz BMI 39.9 BP 114/76 Blood Pressure Location Rt brachial Position Sitting Pulse 84 Pulse Source Pulse Oximeter Pulse Oximetry (%) 95 Oxygen Delivery Method Room Air Intake Visit Reasons: WC 2m peroneal neuropathy-confirmed Intake Note: Pt presents to the office today for a 2 month follow up peroneal neuropathy. Pt states she is still sore and the cold weather isn't helping with the soreness. Pt states she doesn't believe the pain is any better. Allergies No Known Allergies Allergy (Verified 03/26/23 10:35) HPI HPI Comments History of Present Illness Details 68y/o female comes for follow up. she did not go to pain management Her EMG showed mild improvement PT helped a little.she still has trouble walking and standing for a long time. 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 Her UE improved. She had MRI knee which showed severe arthritis .. But her symptoms were mainly in the lateral leg below the knee.she has pain numbness , tingling in her left lateral leg. She had nerve conduction study in Jun 2022- Moderate to severe peroneal neuropathy left and left tibial neuropathy. she reports pain and weakness along with other sensory symptoms which affects her walking . She had a repeat EMG 03/19/23 This is an abnormal study. 2. Given abnormalities seen on left merline sierra SNAP and peroneal CMAP, and denervation seen on left peroneus longus muscle, there is evidence for left common peroneal neuropathy. 3. There is no electrodiagnostic evidenc e for tibial neuropathy, lumbosacral plexopathy, lumbar radiculopathy, or peripheral neuropathy. CLINICAL COMMENT: There is improvement when compared to previous NCS/EMG in June 2022. 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 Left dorsiflexion 5-/5 toe dorsiflexion 5-/5 Improved since her last visitshe is able to do foot taps Very mild foot drop General: patient oriented x3, tone normal and moves all extremities Cranial nerves: Yes Facial sensation intact/muscles of mastication intact, Yes Intact sense of smell present, Yes Bilaterally intact EOM present, Yes Nystagmus not present, Yes Normal facial strength present and Yes Symmetric palate elevation present Cognition (Neuro): normal cognition Gait exam (Neuro): Antalgic gait present Deep tendon reflexes (DTR's): Right triceps reflex intensity grade: 1+, Left triceps reflex intensity grade: 1+, Rt Biceps (C5, C6): 1+, Left biceps reflex intensity grade: 1+, Right brachioradialis reflex intensity grade: 1+, Left brachioradialis reflex intensity grade: 1+, Right patellar reflex intensity grade: 1+, Left patellar reflex intensity grade: 1+, Right ankle reflex intensity grade: 0 and Left ankle reflex intensity grade: 0 Coordination: [id number] test normal Psych Appearance: grossly normal Assessment & Plan Assessment & Plan (1) 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
[2023-03-26 10:33] VITALS: BP 114/76; PULSE 84; O2SAT 95; BMI 39.9
== END 2023-03-26 11:18 | disposition home or self-care (01) ==
PROVIDERS: PCP Internal Medicine; Visit Provider Psychiatry & Neurology Neurology
DX: G57.02 Lesion of sciatic nerve, left lower limb (principal); G00-G99 Diseases of the nervous system
CPT/HCPCS: 99214

== ENCOUNTER → 2023-03-26 10:28 | Outpatient (BNVA) | payer OTHER, SELFPAY | PROVIDERS: PCP Internal Medicine; Visit Provider Psychiatry & Neurology Neurology | DX: G57.02 Lesion of sciatic nerve, left lower limb (principal); G00-G99 Diseases of the nervous system | CPT/HCPCS: 99212 ==

== ENCOUNTER → 2023-04-10 08:46 | Outpatient (BNVA) | payer OTHER, SELFPAY | PROVIDERS: PCP Internal Medicine; Visit Provider Physician Assistant | DX: M79.662 Pain in left lower leg (principal) | CPT/HCPCS: 99213 ==

== ENCOUNTER → 2023-05-28 08:52 | Outpatient (BNVA) | payer OTHER, SELFPAY | PROVIDERS: PCP Internal Medicine; Visit Provider Physician Assistant | DX: S84.12XD Injury of peroneal nerve at lower leg level, left leg, subsequent encounter (principal); W01.0XXD Fall on same level from slipping, tripping and stumbling without subsequent striking against object, subsequent encounter | CPT/HCPCS: 99213 ==

== ENCOUNTER 2023-06-11 08:36 | Outpatient (AMB) | payer MEDICARE, SELFPAY ==
[2023-06-11 08:42] VITALS: BP 126/72; PULSE 93; O2SAT 97; BMI 39.9
--- NOTE | 2023-06-11 08:42 | A.OFFPC_ITS ---
Vital Signs 06/11/23 08:42 Height 5 ft 3 in Weight 225 lb BMI 39.9 BP 126/72 Blood Pressure Location Lt brachial Position Sitting Pulse 93 Pulse Source Pulse Oximeter Pulse Oximetry (%) 97 Oxygen Delivery Method Room Air Intake Visit Reasons: Annual PE Allergies No Known Allergies Allergy (Verified 06/11/23 08:44) Medication List - Last Reconciled 06/11/23 by Liz Castro MD acetaminophen (Tylenol Extra Strength) 500 mg PO QID PRN albuterol sulfate 90 mcg/actuation (Ventolin HFA) 1 inh inhalation Q6H 30 days fluticasone propionate 220 mcg/actuation (Flovent HFA) 2 puffs inhalation BID 30 days hydroxychloroquine 200 mg PO BID omeprazole 20 mg PO DAILY 90 days Tobacco use date assessed: 06/11/23 Fall risk assessment: No Falls in past year Last assessed Fall Risk: 06/11/23 Dental Screening Dental Screen Date: 06/11/23 Did you have a dental visit in the last 12 months?: No Did you have a dental problem in the last 6 months where you did not have access to dental care?: No Was dental information given to patient?: No HPI Annual PE HPI Details History of parathyroidectomy, doing well Asthma moderate persistent:? Stable with Flovent and ProAir GERD stable with omeprazole Patient also have a rheumatoid arthritis and is seeing a cement despatch operator every 3 month.? And having labs done through rheumatology.? History of peripheral vascular disease, stable Hearing impaired stable Mammogram scheduled for next week at [facility] Pap smear through Dr. 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 How often do you have a drink containing alcohol?: Never 3. How often do you have six or more drinks on one occasion?: Never Total Score: 0 Score Reviewed/Action Taken: Yes YONATAN-7 AMB Questionnaire YONATAN-7 Date YONATAN - 7 assessed: 11/01/22 Source: Developed by Drs. Man Allison, Sonia Gandara, Livan Boyer and colleagues, with an educational autumn from [employer]. Physical exam (Primary Care) Vital Signs: Last Vital Signs Pulse 93 06/11/23 08:42 BP 126/72 06/11/23 08:42 Pulse Ox 97 06/11/23 08:42 Oxygen Delivery Method Room Air 06/11/23 08:42 BMI result Body Mass Index 39.9 Tobacco/Smoking Status: Tobacco use Status Tobacco use date assessed 06/11/23 06/11/23 08:45 Patient Tobacco Use Status Never used Tobacco 06/11/23 08:45 e-Cigarette/Vaping Use Never Used 06/11/23 08:45 Thrive Assessment: Date of Thrive Assessment Date Thrive assessed 11/01/22 06/11/23 08:45 Assessment and Plan Assessment & Plan (1) Encounter for general adult medical examination with abnormal findings: Code(s): Z00.01 - Encounter for general adult medical examination with abnormal findings (2) Neutropenia: Code(s): D70.9 - Neutropenia, unspecified (3) Chronic GERD: Code(s): K21.9 - Gastro-esophageal reflux disease without esophagitis (4) Asthma, moderate persistent: Code(s): J45.40 - Moderate persistent asthma, uncomplicated (5) Obesity due to excess calories: Code(s): E66.09 - Other obesity due to excess calories (6) Difficulty hearing: Code(s): H91.90 - Unspecified hearing loss, unspecified ear (7) Osteoarthritis of left knee: Code(s): M17.12 - Unilateral primary osteoarthritis, left knee (8) Complex regional pain syndrome i of left lower limb: Code(s): G90.522 - Complex regional pain syndrome I of left lower limb (9) Rheumatoid arthritis: Code(s): M06.9 - Rheumatoid arthritis, unspecified (10) 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: Code(s): G57.02 - Lesion of sciatic nerve, left lower limb (11) Tibial neuropathy: Code(s): G57.40 - Lesion of medial popliteal nerve, unspecified lower limb Qualifiers: Laterality: left Qualified Code(s): G57.42 - Lesion of medial popliteal nerve, left lower limb Orders: Orders MM tomosynthesis screening BI Today Z12.31 - Encounter for screening mammogram for malignant neoplasm of breast Coding Diagnoses Encounter for general adult medical examination with abnormal findings Z00.01 Neutropenia D70.9 Chronic GERD K21.9 Asthma, moderate persistent J45.40 Obesity due to excess calories E66.09 Difficulty hearing H91.90 Osteoarthritis of left knee M17.12 Complex regional pain syndrome i of left lower limb G90.522 Rheumatoid arthritis M06.9 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
--- NOTE | 2023-06-11 09:10 | MHC.PC.OV ---
Vital Signs 06/11/23 08:42 Height 5 ft 3 in Weight 225 lb BMI 39.9 BP 126/72 Blood Pressure Location Lt brachial Position Sitting Pulse 93 Pulse Source Pulse Oximeter Pulse Oximetry (%) 97 Oxygen Delivery Method Room Air Intake Visit Reasons: Annual PE Allergies No Known Allergies Allergy (Verified 06/11/23 08:44) Medication List - Last Reconciled 06/11/23 by Liz Castro MD acetaminophen (Tylenol Extra Strength) 500 mg PO QID PRN albuterol sulfate 90 mcg/actuation (Ventolin HFA) 1 inh inhalation Q6H 30 days fluticasone propionate 220 mcg/actuation (Flovent HFA) 2 puffs inhalation BID 30 days hydroxychloroquine 200 mg PO BID omeprazole 20 mg PO DAILY 90 days Tobacco use date assessed: 06/11/23 HPI Annual PE HPI Details Patient is a 68-year-old female came in today for physical exam History of parathyroidectomy, doing well Asthma moderate persistent:? Stable with Flovent and ProAir GERD stable with omeprazole Patient also have a rheumatoid arthritis and is seeing a branch billing payroll clerk every 3 month.? And having labs done through rheumatology.? And once a year through this office when she comes in for physical exam History of peripheral vascular disease, stable Hearing impaired stable Mammogram is due, order provided to patient Pap smear through Dr. Trevizo every other year Colonoscopy, patient does not want to do colonoscopy BMI is elevated patient is having difficulty losing weight She has chronic left leg weakness with neuropathy that started after she fell in 2021 at work Patient is on workman's comp currently. She has tried gabapentin which did not help. 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 1. Little interest or pleasure in doing things: not at all 2. Feeling down, depressed, or hopeless: not at all 3. Trouble falling or staying asleep, or sleeping too much: not at all 4. Feeling tired or having little energy: not at all 5. Poor appetite or overeating: several days 6. Feeling bad about yourself - or that you are a failure or have let yourself or your family down: not at all 7. Trouble concentrating on things, such as reading the newspaper or watching television: not at all 8. Moving or speaking so slowly that other people could have noticed. Or the opposite - being so fidgety or restless that you have been moving around a lot more than usual: not at all 9. Thoughts that you would be better off or of hurting yourself in some way: not at all Total score: 1 Depression Screening Interpretation: Negative Depression Screening Done: Yes 69120 - PHQ-9 Billing: Yes Source: Developed by Drs. Man Allison, Sonia Gandara, Livan Boyer and colleagues, with an educational autumn from [employer]. Thrive Questionnaire Date Thrive assessed: 11/01/22 AUDIT C Alcohol Use Questionnaire (AUDIT-C) 1. How often do you have a drink containing alcohol?: Never 3. How often do you have six or more drinks on one occasion?: Never Total Score: 0 Score Reviewed/Action Taken: Yes YONATAN-7 AMB Questionnaire YONATAN-7 Date YONATAN - 7 assessed: 11/01/22 Source: Developed by Drs. Man Allison, Sonia Gandara, Livan Boyer and colleagues, with an educational autumn from [employer]. ACT Questionnaire In the past 4 weeks, how much of the time did your asthma keep you from getting as much done at work, school or at home?: All of the time During the past 4 weeks, how often have you had shortness of breath?: Once a day During the past 4 weeks, how often did your asthma symptoms wake you up at night or earlier than usual in the morning?: Once or twice per week During the past 4 weeks, how often have you had to use your rescue inhaler or nebulizer medication?: More than 3 times per day How would you rate your asthma control during the past 4 weeks?: Well controlled ACT Interpretation: Negative Score: 12 Review of Systems Const Denies chills, Denies fever(s) and Denies headache(s) Eyes Denies blurry vision ENT Denies headache(s), Denies nasal discharge, Denies nasal obstruction, Denies odynophagia and Denies sinus pain Card Denies chest pain at rest and Denies chest pain with activity Resp Denies cough and Denies hemoptysis GI Denies diarrhea, Denies odynophagia, Denies vomiting and Denies hematemesis Reports as per HPI Skin/Breast Reports as per HPI Neuro Denies Neuro-related abnormal movements, Denies Abnormal speech present and Denies headache(s) Psych Denies mood swings and Denies paranoia Endo Reports as per HPI Fady/Lymph Reports as per HPI Aller/Immun Reports as per HPI Physical exam (Primary Care) Vital Signs: Last Vital Signs Pulse 93 06/11/23 08:42 BP 126/72 06/11/23 08:42 Pulse Ox 97 06/11/23 08:42 Oxygen Delivery Method Room Air 06/11/23 08:42 BMI result Body Mass Index 39.9 Tobacco/Smoking Status: Tobacco use Status Tobacco use date assessed 06/11/23 06/11/23 09:16 Patient Tobacco Use Status Never used Tobacco 06/11/23 09:16 e-Cigarette/Vaping Use Never Used 06/11/23 09:16 PHQ-9: PHQ-9 Score PHQ-9: Total score 1 06/11/23 09:24 Depression Screening Interpretation: Negative Thrive Assessment: Date of Thrive Assessment Date Thrive assessed 11/01/22 06/11/23 09:16 Const General: cooperative, comfortable and no acute distress Orientation/consciousness: patient oriented x3 HENMT Head: Yes normocephalic and Yes atraumatic Eyes General: appearance normal, both eyes and all related structures Pupils: Equal, round and reactive pupils present EOM: EOMs intact bilaterally Neck Neck: Yes supple and No lymphadenopathy Thyroid: Thyroid normal Lymphatic: no lymphadenopathy noted Chest Breast/axilla palpation: normal palpation of the breasts Resp Effort & Inspection: normal respiratory effort and able to speak in complete sentences Auscultation: clear to auscultation bilaterally Cardio Heart sounds: S1 normal heart sound present and S2 normal heart sound present GI Palpation (GI): Soft to palpation and nontender Auscultation: normal bowel sounds General: Yes no CVA tenderness Back/Spine/Pelvis Back: no CVA tenderness Skin General skin exam: elasticity normal and turgor normal Neuro General: patient oriented x3 and gait normal Cranial nerves: Yes Equal, round and reactive pupils present Speech: No Abnormal speech present Coordination: tandem gait normal and Romberg test negative Extrem General: Yes normal exam except as noted and No edema Assessment and Plan Assessment & Plan (1) Encounter for general adult medical examination with abnormal findings: Code(s): Z00.01 - Encounter for general adult medical examination with abnormal findings (2) Neutropenia: Code(s): D70.9 - Neutropenia, unspecified Qualifiers: Neutropenia type: unspecified Qualified Code(s): D70.9 - Neutropenia, unspecified (3) Chronic GERD: Code(s): K21.9 - Gastro-esophageal reflux disease without esophagitis (4) Asthma, moderate persistent: Code(s): J45.40 - Moderate persistent asthma, uncomplicated Qualifiers: Asthma complication type: uncomplicated Qualified Code(s): J45.40 - Moderate persistent asthma, uncomplicated (5) Obesity due to excess calories: Code(s): E66.09 - Other obesity due to excess calories Qualifiers: Body mass index: BMI 39.0-39.9 Obesity classification: adult class 2 (BMI 35 - 39.9) Serious obesity comorbidity presence: without serious comorbidity Qualified Code(s): E66.09 - Other obesity due to excess calories; Z68.39 - Body mass index [BMI] 39.0-39.9, adult (6) Difficulty hearing: Code(s): H91.90 - Unspecified hearing loss, unspecified ear Qualifiers: Laterality: bilateral Qualified Code(s): H91.93 - Unspecified hearing loss, bilateral (7) Osteoarthritis of left knee: Code(s): M17.12 - Unilateral primary osteoarthritis, left knee Qualifiers: Osteoarthritis type: primary Qualified Code(s): M17.12 - Unilateral primary osteoarthritis, left knee (8) Complex regional pain syndrome i of left lower limb: Code(s): G90.522 - Complex regional pain syndrome I of left lower limb (9) Rheumatoid arthritis: Code(s): M06.9 - Rheumatoid arthritis, unspecified Qualifiers: Rheumatoid arthritis location: other site Rheumatoid factor presence: with rheumatoid factor Qualified Code(s): M05.7A - Rheumatoid arthritis with rheumatoid factor of other specified site without organ or systems involvement (10) 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 Stable with Flovent and ProAir GERD stable with omeprazole Patient also have a rheumatoid arthritis and is seeing a branch billing payroll clerk every 3 month.? And having labs done through rheumatology.? And once a year through this office when she comes in for physical exam History of peripheral vascular disease, stable Hearing impaired stable Mammogram is due, order provided to patient Pap smear through Dr. Trevizo every other year Colonoscopy, patient does not want to do colonoscopy BMI is elevated patient is having difficulty losing weight She has chronic left leg weakness with neuropathy that started after she fell in 2021 at work Patient is on workman's comp currently. She has tried gabapentin which did not help. With the pain Orders: Orders MM tomosynthesis screening BI Today Z12.31 - Encounter for screening mammogram for malignant neoplasm of breast Comprehensive [facility]. Panel Fast Today D70.9 - Neutropenia, unspecified, E66.09 - Other obesity due to excess calories, G57.02 - Lesion of sciatic nerve, left lower limb, G57.40 - Lesion of medial popliteal nerve, unspecified lower limb, J45.40 - Moderate persistent asthma, uncomplicated, M06.9 - Rheumatoid arthritis, unspecified, Z00.01 - Encounter for general adult medical examination with abnormal findings Complete Blood Count Auto Diff Today D70.9 - Neutropenia, unspecified, E66.09 - Other obesity due to excess calories, G57.02 - Lesion of sciatic nerve, left lower limb, G57.40 - Lesion of medial popliteal nerve, unspecified lower limb, J45.40 - Moderate persistent asthma, uncomplicated, M06.9 - Rheumatoid arthritis, unspecified, Z00.01 - Encounter for general adult medical examination with abnormal findings LDL Cholesterol Direct Today D70.9 - Neutropenia, unspecified, E66.09 - Other obesity due to excess calories, G57.02 - Lesion of sciatic nerve, left lower limb, G57.40 - Lesion of medial popliteal nerve, unspecified lower limb, J45.40 - Moderate persistent asthma, uncomplicated, M06.9 - Rheumatoid arthritis, unspecified, Z00.01 - Encounter for general adult medical examination with abnormal findings Coding Level of Care Code Est Pt Prev Care >65y(47280) Diagnoses Encounter for general adult medical examination with abnormal findings Z00.01 Neutropenia, unspecified type D70.9 Neutropenia type: unspecified Chronic GERD K21.9 Moderate persistent asthma without complication J45.40 Asthma complication type: uncomplicated Class 2 obesity due to excess calories without serious comorbidity with body mass index (BMI) of 39.0 to 39.9 in adult E66.09; Z68.39 Body mass index: BMI 39.0-39.9 Obesity classification: adult class 2 (BMI 35 - 39.9) Serious obesity comorbidity presence: without serious comorbidity Hearing difficulty of both ears H91.93 Laterality: bilateral Primary osteoarthritis of left knee M17.12 Osteoarthritis type: primary Complex regional pain syndrome i of left lower limb G90.522 Rheumatoid arthritis of other site with positive rheumatoid factor M05.7A Rheumatoid arthritis location: other site Rheumatoid factor presence: with rheumatoid factor 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
== END 2023-06-11 09:15 | disposition home or self-care (01) ==
PROVIDERS: PCP Internal Medicine; Visit Provider Internal Medicine
DX: Z00.00 Encounter for general adult medical examination without abnormal findings (principal); M05.7A Rheumatoid arthritis with rheumatoid factor of other specified site without organ or systems involvement; D70.9 Neutropenia, unspecified; K21.9 Gastro-esophageal reflux disease without esophagitis; J45.40 Moderate persistent asthma, uncomplicated; E66.09 Other obesity due to excess calories; Z68.39 Body mass index [BMI] 39.0-39.9, adult; H91.93 Unspecified hearing loss, bilateral; M17.12 Unilateral primary osteoarthritis, left knee; G90.522 Complex regional pain syndrome I of left lower limb; G57.02 Lesion of sciatic nerve, left lower limb; G57.42 Lesion of medial popliteal nerve, left lower limb
CPT/HCPCS: 99397

== ENCOUNTER 2023-06-11 09:05 | Outpatient (AMB) | payer OTHER, MEDICARE, SELFPAY ==
--- NOTE | 2023-06-11 09:17 | MHC.PC.OV ---
Intake Visit Reasons: WC, left leg neuropathy Allergies No Known Allergies Allergy (Verified 06/11/23 08:44) Medication List - Last Reconciled 06/11/23 by Liz Castro MD acetaminophen (Tylenol Extra Strength) 500 mg PO QID PRN albuterol sulfate 90 mcg/actuation (Ventolin HFA) 1 inh inhalation Q6H 30 days fluticasone propionate 220 mcg/actuation (Flovent HFA) 2 puffs inhalation BID 30 days hydroxychloroquine 200 mg PO BID omeprazole 20 mg PO DAILY 90 days Tobacco use date assessed: 06/11/23 HPI WC, left leg neuropathy HPI Details Patient is a 68-year-old female Who has developed Left leg neuropathy after fall of 2021, at work Patient developed weakness in her leg neuropathy, currently she is suffering from pain, tells me that if she stands for long period of time her legs gives out on her She has already seen to vehicle painter and was told that there is nothing much can be done, patient has seen neurologist as well She has tried gabapentin which made her leg worse. Patient has never tried Lyrica, she is willing to try that I have sent 30 tablets We will book a telemedicine visit in 3 weeks to see how she is doing with this medication. 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 Man Allison, Sonia Gandara, Livan Boyer and colleagues, with an educational autumn from [employer]. Review of Systems Const Denies chills and Denies fever(s) ENT Denies epistaxis and Denies nasal discharge Card Denies chest pain Resp Denies chest congestion, Denies cough and Denies hemoptysis GI Denies diarrhea and Denies nausea Skin/Breast Denies rash Neuro Reports no additional complaints Psych Reports no additional complaints Endo Reports no additional complaints Physical exam (Primary Care) Tobacco/Smoking Status: Tobacco use Status Tobacco use date assessed 06/11/23 06/11/23 09:17 Patient Tobacco Use Status Never used Tobacco 06/11/23 09:17 e-Cigarette/Vaping Use Never Used 06/11/23 09:17 Thrive Assessment: Date of Thrive Assessment Date Thrive assessed 11/01/22 06/11/23 09:17 Const General: cooperative, comfortable and no acute distress Orientation/consciousness: patient oriented x3 HENMT Head: Yes normocephalic Eyes General: appearance normal, both eyes and all related structures Neck Neck: Yes supple Resp Effort & Inspection: normal respiratory effort, no cough and no stridor Cardio Rhythm: regular rhythm Heart sounds: S1 normal heart sound present and S2 normal heart sound present Skin General skin exam: turgor normal Neuro Other: Left leg 4 x 5 strength right leg 5 x 5 strength General: patient oriented x3, tone normal and moves all extremities Extrem Right lower extremity: no edema Left lower extremity: no edema Assessment and Plan Assessment & Plan (1) Complex regional pain syndrome i of left lower limb: Code(s): G90.522 - Complex regional pain syndrome I of left lower limb (2) Chronic pain syndrome: Code(s): G89.4 - Chronic pain syndrome (3) Tibial neuropathy: Code(s): G57.40 - Lesion of medial popliteal nerve, unspecified lower limb Qualifiers: Laterality: left Qualified Code(s): G57.42 - Lesion of medial popliteal nerve, left lower limb (4) Left leg weakness: Code(s): R29.898 - Other symptoms and signs involving the musculoskeletal system (5) Paresthesia of left lower extremity: Code(s): R20.2 - Paresthesia of skin Plan Patient is a 68-year-old female Who has developed Left leg neuropathy after fall of 2021, at work Patient developed weakness in her leg neuropathy, currently she is suffering from pain, tells me that if she stands for long period of time her legs gives out on her She has already seen to vehicle painter and was told that there is nothing much can be done, patient has seen neurologist as well She has tried gabapentin which made her leg worse. Patient has never tried Lyrica, she is willing to try that I have sent 30 tablets We will book a telemedicine visit in 3 weeks to see how she is doing with this medication. Her physical exam shows weakness in left leg compared to right Medications: New pregabalin (Lyrica) 25 mg PO BEDTIME 30 caps 0RF Left leg pain Coding Level of Care Code Est Pt Level 4 (79227) Diagnoses Complex regional pain syndrome i of left lower limb G90.522 Chronic pain syndrome G89.4 Left tibial neuropathy G57.42 Laterality: left Left leg weakness R29.898 Paresthesia of left lower extremity R20.2
== END 2023-06-11 09:14 | disposition home or self-care (01) ==
PROVIDERS: PCP Internal Medicine; Visit Provider Internal Medicine
DX: G90.522 Complex regional pain syndrome I of left lower limb (principal); G89.4 Chronic pain syndrome; G57.42 Lesion of medial popliteal nerve, left lower limb; R29.898 Other symptoms and signs involving the musculoskeletal system; R20.2 Paresthesia of skin
CPT/HCPCS: 99214

== ENCOUNTER 2023-06-13 07:31 | Outpatient (REF) | payer MEDICARE, SELFPAY ==
[2023-06-13 11:23] LABS: MANUAL DIFF FLAG NO
[2023-06-13 11:31] LABS: Basophils Percent Auto 0.6 % (0-2); Eosinophils Absolute Auto 0.2 X10*3/uL (0.0-0.4); Eosinophils Percent Auto 4.7 % (0-4); Hematocrit 43.5 % (37.0-47.0); Hemoglobin 13.7 g/dl (12.0-16.0); Imm Gran Abs Auto 0.01 X10*3/uL (0.00-0.03); Imm Gran Pct Auto 0.3 % (0.0-0.4); Lymphocytes Absolute Auto 1.6 X10*3/uL (1.2-4.9); Lymphocytes Percent Auto 44.7 % (20-40); Mean Corpuscular HGB Conc 31.5 g/dl (31.0-35.0); Mean Corpuscular Hemoglobin 28.6 pg (27.0-33.0); Mean Corpuscular Volume 90.8 fL (80.0-98.0); Monocytes Absolute Auto 0.4 X10*3/uL (0.1-1.2); Monocytes Percent Auto 11.7 % (2-11); Neutrophils Absolute Auto 1.4 x10*3/uL (2.0-8.3); Platelet Count 256 X10*3/uL (160-400); Red Blood Count 4.79 X10*6/uL (4.20-5.50); Red Cell Distribution Width 14.2 % (11.0-16.0); White Blood Count 3.6 X10*3/uL (4.8-10.8)
[2023-06-13 11:47] LABS: Alanine Aminotransferase 13 U/L (0-31); Albumin Level 4.1 g/dL (3.5-5.0); Alkaline Phosphatase 99 U/L (39-117); Anion Gap 13 (12-20); Aspartate Amino Transferase 15 U/L (5-31); Bilirubin Total 0.5 mg/dL (0.0-1.0); Blood Urea Nitrogen 13 mg/dL (9-16); Calcium 9.4 mg/dL (8.4-10.2); Carbon Dioxide 29 mmol/L (22-29); Chloride 106 mmol/L (96-108); Estimated Glomerular Filt Rate > 60; Glucose Fasting 88 mg/dL (60-99); Potassium 4.6 mmol/L (3.3-5.1); Sodium 143 mmol/L (135-145); Total Protein 7.2 g/dL (6.5-8.0)
[2023-06-14 15:32] LABS: LDL Cholesterol Direct 144 mg/dL (<100)
== END 2023-06-13 07:32 | disposition home or self-care (01) ==
LOC: HO.HMGCLDS 07:31
PROVIDERS: PCP Internal Medicine; Visit Provider Internal Medicine
DX: Z00.01 Encounter for general adult medical examination with abnormal findings (principal); E66.09 Other obesity due to excess calories; J45.40 Moderate persistent asthma, uncomplicated; D70.9 Neutropenia, unspecified; G00-G99 Diseases of the nervous system; G57.02 Lesion of sciatic nerve, left lower limb; M06.9 Rheumatoid arthritis, unspecified
CPT/HCPCS: 36415; 80053; 83721; 85025

== ENCOUNTER 2023-07-03 08:26 | Outpatient (AMB) | payer MEDICARE, SELFPAY ==
--- NOTE | 2023-07-03 08:37 | MHC.PC.OV ---
Intake Visit Reasons: 3 week follow up [facility] leg neuro/[phone] Allergies pregabalin [From Lyrica] Adverse Reaction (Verified 07/03/23 09:19) drowsiness Medication List - Last Reconciled 07/03/23 by Liz Castro MD acetaminophen (Tylenol Extra Strength) 500 mg PO QID PRN albuterol sulfate 90 mcg/actuation (Ventolin HFA) 1 inh inhalation Q6H 30 days fluticasone propionate 220 mcg/actuation (Flovent HFA) 2 puffs inhalation BID 30 days hydroxychloroquine 200 mg PO BID omeprazole 20 mg PO DAILY 90 days pregabalin (Lyrica) 25 mg PO BEDTIME Tobacco use date assessed: 07/03/23 Fall risk assessment: No Falls in past year Last assessed Fall Risk: 07/03/23 Dental Screening Dental Screen Date: 07/03/23 Did you have a dental visit in the last 12 months?: No Did you have a dental problem in the last 6 months where you did not have access to dental care?: No Was dental information given to patient?: No HPI 3 week follow up [facility] leg neuro/[phone] HPI Details Patient is 68-year-old female who suffers from left leg radicular pain after encountering injury at work She has seen several specialist and they have exhausted the treatment, I started her on letter, thinking it might help but it did not and she felt very tired taking that. So she stopped it. Patient does not want take any medication at this time. 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 1. Little interest or pleasure in doing things: not at all 2. Feeling down, depressed, or hopeless: not at all 3. Trouble falling or staying asleep, or sleeping too much: not at all 4. Feeling tired or having little energy: not at all 5. Poor appetite or overeating: several days 6. Feeling bad about yourself - or that you are a failure or have let yourself or your family down: not at all 7. Trouble concentrating on things, such as reading the newspaper or watching television: not at all 8. Moving or speaking so slowly that other people could have noticed. Or the opposite - being so fidgety or restless that you have been moving around a lot more than usual: not at all 9. Thoughts that you would be better off or of hurting yourself in some way: not at all Total score: 1 Depression Screening Interpretation: Negative Depression Screening Done: Yes 48714 - PHQ-9 Billing: Yes Source: Developed by Drs. Man Allison, Sonia Gandara, Livan Boyer and colleagues, with an educational autumn from [employer]. Thrive Questionnaire Date Thrive assessed: 07/03/23 I am a: Patient What is your living situation today?: I have a steady place to live Within the past 12 months, did the food you bought not last and you didn't have the money to get more?: Never true Within the past 12 months, did you worry whether your food would run out before you got money to buy more?: Never true Do you have trouble paying for medicines?: No Do you have trouble getting transportation to medical appointments?: No Do you have trouble paying your heating and electricity bill?: No Do you have trouble taking care of your child, family member or friend?: No Do you have trouble with day-to-day activities such as bathing, preparing meals, shopping, managing finances, etc.?: No Are you currently unemployed and looking for a job?: No Are you interested in more education?: No Please select the resources that you would like help with: None Currently or been in a relationship where the following occur: no concerns reported AUDIT C Alcohol Use Questionnaire (AUDIT-C) 1. How often do you have a drink containing alcohol?: Never 3. How often do you have six or more drinks on one occasion?: Never Total Score: 0 Score Reviewed/Action Taken: Yes YONATAN-7 AMB Questionnaire YONATAN-7 Date YONATAN - 7 assessed: 07/03/23 Feeling nervous, anxious, or on edge: 0 = Not at all Not being able to stop or control worryin = Not at all Worrying too much about different things: 0 = Not at all Trouble relaxin = Not at all Being so restless that it is hard to sit still: 0 = Not at all Becoming easily annoyed or irritable: 0 = Not at all Feeling afraid as if something awful might happen: 0 = Not at all Total YONATAN-7 score (0-4 normal; 5-9 mild; 10-14 moderate; 15-21 severe): 0 Source: Developed by Drs. Man Allison, Sonia Gandara, Livan Boyer and colleagues, with an educational autumn from [employer]. YONATAN-7 Assessment Billing YONATAN-7 Assessment Tool: YONATAN-7 Assessment 79359 Review of Systems Const Details: negative Physical exam (Primary Care) Tobacco/Smoking Status: Tobacco use Status Tobacco use date assessed 07/03/23 07/03/23 08:39 Patient Tobacco Use Status Never used Tobacco 07/03/23 08:39 e-Cigarette/Vaping Use Never Used 07/03/23 08:39 PHQ-9: PHQ-9 Score PHQ-9: Total score 1 07/03/23 08:39 Depression Screening Interpretation: Negative Thrive Assessment: Date of Thrive Assessment Date Thrive assessed 07/03/23 07/03/23 08:39 Currently or been in a relationship where the following occur: no concerns reported Telehealth Telehealth Location of provider rendering services: practice address Location of patient: address on file Patient Identification confirmed using: Name, : Yes Telehealth method: voice only Patient verbally consented to treatment: Yes Patient verbally consented to billing insurance company: Yes Patient informed of any privacy concerns related to visit: Yes Minutes spent on Phone/Video with Pt.: 11 Assessment and Plan Assessment & Plan (1) Complex regional pain syndrome i of left lower limb: Code(s): G90.522 - Complex regional pain syndrome I of left lower limb Plan Patient is 68-year-old female who suffers from left leg radicular pain after encountering injury at work She has seen several specialist and they have exhausted the treatment, I started her on letter, thinking it might help but it did not and she felt very tired taking that. So she stopped it. Patient does not want take any medication at this time. Medications: Discontinued pregabalin (Lyrica) Discontinued Reason: Doctor's Order 25 mg PO BEDTIME 30 caps 0RF Left leg pain Coding Level of Care Code Tele New Pt Level 2 (22581) Diagnoses Complex regional pain syndrome i of left lower limb G90.522 Additional Codes YOANTAN-7 Assessment Billing - YONATAN-7 Assessment Tool: YONATAN-7 Assessment 54045 ([id number])
== END 2023-07-03 09:36 | disposition home or self-care (01) ==
PROVIDERS: PCP Internal Medicine; Visit Provider Internal Medicine
DX: G90.522 Complex regional pain syndrome I of left lower limb (principal)
CPT/HCPCS: 99442

== ENCOUNTER → 2023-07-23 08:33 | Outpatient (BNVA) | payer OTHER, SELFPAY | PROVIDERS: PCP Internal Medicine; Visit Provider Physician Assistant | DX: M76.72 Peroneal tendinitis, left leg (principal) | CPT/HCPCS: 99213 ==

== ENCOUNTER → 2023-09-03 08:32 | Outpatient (BNVA) | payer OTHER, SELFPAY | PROVIDERS: PCP Internal Medicine; Visit Provider Physician Assistant | DX: G57.92 Unspecified mononeuropathy of left lower limb (principal); Z91.81 History of falling | CPT/HCPCS: 99214 ==

== ENCOUNTER 2023-10-15 15:21 | Outpatient (AMB) | payer OTHER, SELFPAY ==
[2023-10-15 15:22] VITALS: BP 118/64; PULSE 98; O2SAT 95; BMI 38.4
--- NOTE | 2023-10-15 15:22 | MHC.PC.OV ---
Vital Signs 10/15/23 15:22 Height 5 ft 3 in Weight 217 lb BMI 38.4 BP 118/64 Blood Pressure Location Rt brachial Position Sitting Pulse 98 Pulse Source Pulse Oximeter Pulse Oximetry (%) 95 Oxygen Delivery Method Room Air Intake Visit Reasons: Financial Application for Hearing Aid Allergies pregabalin [From Lyrica] Adverse Reaction (Verified 10/15/23 15:24) drowsiness Medication List - Last Reconciled 10/15/23 by Liz Castro MD acetaminophen (Tylenol Extra Strength) 500 mg PO QID PRN albuterol sulfate 90 mcg/actuation (Ventolin HFA) 1 inh inhalation Q6H 30 days Arnuity Ellipta 100 mcg/actuation (fluticasone furoate) 1 inh inhalation DAILY NS hydroxychloroquine 200 mg PO BID omeprazole 20 mg PO DAILY 90 days Tobacco use date assessed: 10/15/23 Fall risk assessment: No Falls in past year Last assessed Fall Risk: 10/15/23 Dental Screening Dental Screen Date: 10/15/23 Did you have a dental visit in the last 12 months?: No Was dental information given to patient?: Patient declined HPI Financial Application for Hearing Aid HPI Details Patient is 68-year-old female with difficulty hearing She has change of insurance and could not afford hearing aids She came in today for paperwork so she can have financial assistance through her insurance so to have new hearing aid beer Patient has failed whisper test today Paperwork filled PFS Medical History 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 Man Allison, Sonia Gandara, Livan Boyer and colleagues, with an educational autumn from [employer] Review of Systems Const All systems reviewed & are unremarkable except as noted in HPI and below Physical exam (Primary Care) Vital Signs: Last Vital Signs Pulse 98 10/15/23 15:22 BP 118/64 10/15/23 15:22 Pulse Ox 95 10/15/23 15:22 Oxygen Delivery Method Room Air 10/15/23 15:22 BMI result Body Mass Index 38.4 Tobacco/Smoking Status: Tobacco use Status Tobacco use date assessed 10/15/23 10/15/23 15:26 Patient Tobacco Use Status Never used Tobacco 10/15/23 15:22 e-Cigarette/Vaping Use Never Used 10/15/23 15:22 Thrive Assessment: Date of Thrive Assessment Date Thrive assessed 07/03/23 10/15/23 15:22 Const General: no acute distress Orientation/consciousness: patient oriented x3 Eyes General: appearance normal, both eyes and all related structures Resp Effort & Inspection: normal respiratory effort and able to speak in complete sentences Auscultation: clear to auscultation bilaterally Neuro General: patient oriented x3 Psych Mental Status: mental status grossly normal Assessment and Plan Assessment & Plan (1) Difficulty hearing: Code(s): H91.90 - Unspecified hearing loss, unspecified ear Qualifiers: Laterality: bilateral Qualified Code(s): H91.93 - Unspecified hearing loss, bilateral Plan Patient is 68-year-old female with difficulty hearing She has change of insurance and could not afford hearing aids She came in today for paperwork so she can have financial assistance through her insurance so to have new hearing aid beer Patient has failed whisper test today Paperwork filled Coding Level of Care Code Est Pt Level 3 (55577) Diagnoses Hearing difficulty of both ears H91.93 Laterality: bilateral
== END 2023-10-15 16:44 | disposition home or self-care (01) ==
LOC: HO.HMGC 15:21
PROVIDERS: PCP Internal Medicine; Visit Provider Internal Medicine
DX: H91.93 Unspecified hearing loss, bilateral (principal)
CPT/HCPCS: 99213

== ENCOUNTER → 2023-10-29 10:00 | Outpatient (BNVA) | payer OTHER, SELFPAY | PROVIDERS: PCP Internal Medicine; Visit Provider Physician Assistant | DX: G57.92 Unspecified mononeuropathy of left lower limb (principal); Z91.81 History of falling | CPT/HCPCS: 99213 ==

== ENCOUNTER → 2024-01-07 08:37 | Outpatient (BNVA) | payer OTHER, SELFPAY | PROVIDERS: PCP Internal Medicine; Visit Provider Physician Assistant | DX: G57.92 Unspecified mononeuropathy of left lower limb (principal) | CPT/HCPCS: 99213 ==

== ENCOUNTER → 2024-03-03 08:31 | Outpatient (BNVA) | payer OTHER, SELFPAY | PROVIDERS: PCP Internal Medicine; Visit Provider Physician Assistant | DX: G57.92 Unspecified mononeuropathy of left lower limb (principal) | CPT/HCPCS: 99213 ==

== ENCOUNTER → 2024-04-15 09:14 | Outpatient (BNVA) | payer OTHER, SELFPAY | PROVIDERS: PCP Internal Medicine; Visit Provider Physician Assistant | DX: S84.12XD Injury of peroneal nerve at lower leg level, left leg, subsequent encounter (principal); W01.0XXD Fall on same level from slipping, tripping and stumbling without subsequent striking against object, subsequent encounter | CPT/HCPCS: 99213 ==

== ENCOUNTER → 2024-06-03 09:06 | Outpatient (BNVA) | payer OTHER, SELFPAY | PROVIDERS: PCP Internal Medicine; Visit Provider Physician Assistant | DX: S84.12XD Injury of peroneal nerve at lower leg level, left leg, subsequent encounter (principal); W01.0XXD Fall on same level from slipping, tripping and stumbling without subsequent striking against object, subsequent encounter | CPT/HCPCS: 99213 ==

== ENCOUNTER 2024-06-16 10:04 | Outpatient (AMB) | payer MEDICARE, MEDICAID, SELFPAY ==
[2024-06-16 10:15] VITALS: BP 116/68; PULSE 85; O2SAT 95; BMI 38.6
--- NOTE | 2024-06-16 10:15 | A.OFFPC_ITS ---
Vital Signs 06/16/24 10:15 Height 5 ft 3 in Weight 218 lb 2 oz BMI 38.6 BP 116/68 Blood Pressure Location Lt brachial Position Sitting Pulse 85 Pulse Source Pulse Oximeter Pulse Oximetry (%) 95 Oxygen Delivery Method Room Air Intake Visit Reasons: Annual PE Allergies pregabalin [From Lyrica] Adverse Reaction (Verified 06/16/24 10:17) drowsiness Medication List - Last Reconciled 06/16/24 by Liz Castro MD acetaminophen (Tylenol Extra Strength) 500 mg PO QID PRN albuterol sulfate 90 mcg/actuation (Ventolin HFA) 1 inh inhalation Q6H 30 days Arnuity Ellipta 100 mcg/actuation (fluticasone furoate) 1 inh inhalation DAILY NS hydroxychloroquine 200 mg PO BID omeprazole 20 mg PO DAILY 90 days Tobacco use date assessed: 06/16/24 Fall risk assessment: No Falls in past year Last assessed Fall Risk: 06/16/24 Dental Screening Dental Screen Date: 06/16/24 Did you have a dental visit in the last 12 months?: No Did you have a dental problem in the last 6 months where you did not have access to dental care?: No Was dental information given to patient?: No HPI Annual PE HPI Details Chief Complaint Persistent left leg pain due to complex regional pain syndrome patient came in for physical exam appointment Health Maintenance - Mammogram due this year, previously do ne last year - Colonoscopy declined by the patient - Flu vaccine up-to-date - High cholesterol with LDL at 144, requ iring monitoring - Discussion on weight management Assessment and Plan 69-year-old female with a history of com plex regional pain syndrome in the left lower extremity, presenting for her annual physical examination with concerns about unresolved leg pain, preventive care updates, and high cholesterol levels. The patient's leg pain is attributed to nerve damage incurred from a fall three years ago. She has declined further colonoscopy screenings but requires a mammogram. Hyperlipidemia remains a concern, with recent LDL levels indicating the need for continuous monitoring. Hearing loss and difficulties in obtaining hearing aids due to coverage issues were also discussed. The patient's manag ement plan is complicated by Workman's Compensation disputes limiting access to pain management resources. 1. Nerve Damage Damage acknowledged as a long-standing issue with no viable intervention due to the elapsed time since the incident. The patient is aware of the limitations in nerve interventions. Consider physical therapy for functional support as tolerated. 2. Fall History With Residual Pain Not directly treated but complications acknowledged in ongoing leg and nerve pain. Evaluate need for mobility aids pending a consultation with a vocational rehabilitation teacher for equipment assessment. 3. Hyperlipidemia Recommend continued monitoring of lipid profile with Fasting LDL retests. The patient is instructed to address dietary habits for cholesterol management. V egetarian sources of dietary fiber and plant sterols encouraged. A lab requisition for cholesterol monitoring will be provided. 4. Hearing Loss Patient reports difficulties in obtaining hearing aids as [employer] does not cover the devices. Suggested exploring alternative services and financial assistance programs available through hearing aid suppliers. 5. Complex Regional Pain Syndrome, Left Lower Extremity The condition is attributed to nerve damage following a fall several years ago. The patient has previously been referred to pain management, but coverage issues persist with Workman's Compensation limiting access to proposed interventions. Current management involves home remedies like heat application as temporary pain relief. Future considerations involve navigating Workman's Compensation for comprehensive pain management evaluation. 6-rheumatoid arthritis managed by [facility]: Rheumatology Employment - On Workman's Compensation due to leg i njury and attends regular evaluations every eight weeks. Diagnostic results - Labs: High cholesterol reported with L DL at 144; previously assessed in March by fill manager. Review of Systems - Musculoskeletal: Reports persistent pa in in the left leg due to nerve damage. - Integumentary: Denies current swelling . General: No fever no chills neurological: No headaches no dizziness ear nose throat: No sore throat no hearing difficulty no ear pain cardiovascular: No syncope, no chest pain, no palpitations gastrointestinal: No nausea vomiting or diarrhea endocrine: No polyuria polydipsia no heat intolerance genitourinary: No dysuria skin: No new complaints Physical Exam General: Cooperative, healthy appearing, comfortable, no acute distress and well developed Orientation: Patient oriented x3 Limitations: Limited mobility due to left leg pain Head: Normal to inspection Ears: but patient mentions needing a hearing test and potential hearing aids Nose: Normal external nose present Face and sinus: Normal facial exam Eyes: Appearance normal, both eyes and all related structures Neck: Normal visual inspection and supple, neck is fully mobile Respiratory: Normal respiratory effort and able to speak in complete sentences. Clear to auscultation bilaterally Cardiovascular: S1 and S2 GI: Normal to inspection. Soft to palpation and nontender Skin: Turgor normal Neuro: Patient oriented x3, motor sensory intact. 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 Hyperparathyroidism Social History Housing: House Patient Tobacco Use Status: Never used Tobacco e-Cigarette/Vaping Use: Never Used Second Hand Smoke Exposure: No service: No Current occupational status: employed and previously employed 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, 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 Cognitive needs: No Hearing needs: Yes Vision needs: Yes Questionnaire Thrive Questionnaire Date Thrive assessed: 06/16/24 I am a: Patient What is your living situation today?: I have a steady place to live Within the past 12 months, did the food you bought not last and you didn't have the money to get more?: Never true Within the past 12 months, did you worry whether your food would run out before you got money to buy more?: Never true Do you have trouble paying for medicines?: No Do you have trouble getting transportation to medical appointments?: No Do you have trouble paying your heating and electricity bill?: No Do you have trouble taking care of your child, family member or friend?: No Do you have trouble with day-to-day activities such as bathing, preparing meals, shopping, managing finances, etc.?: No Are you currently unemployed and looking for a job?: No Are you interested in more education?: No Please select the resources that you would like help with: None Currently or been in a relationship where the following occur: No concerns reported THRIVE Score: 0 AUDIT C Alcohol Use Questionnaire (AUDIT-C) 1. How often do you have a drink containing alcohol?: Never 3. How often do you have six or more drinks on one occasion?: Never Total Score: 0 Score Reviewed/Action Taken: Yes YONATAN-7 AMB Questionnaire YONATAN-7 Date YONATAN - 7 assessed: 06/16/24 Feeling nervous, anxious, or on edge: 1 = Several days Not being able to stop or control worryin = Not at all Worrying too much about different things: 0 = Not at all Trouble relaxin = Not at all Being so restless that it is hard to sit still: 0 = Not at all Becoming easily annoyed or irritable: 0 = Not at all Feeling afraid as if something awful might happen: 0 = Not at all Total YONATAN-7 score (0-4 normal; 5-9 mild; 10-14 moderate; 15-21 severe): 1 Source: Developed by Drs. Man Allison, Sonia Gandara, Livan Boyer and colleagues, with an educational autumn from [employer]. YONATAN-7 Assessment Billing YONATAN-7 Assessment Tool: YONATAN-7 Assessment 94405 Physical exam (Primary Care) Vital Signs: Last Vital Signs Pulse 85 06/16/24 10:15 BP 116/68 06/16/24 10:15 Pulse Ox 95 06/16/24 10:15 Oxygen Delivery Method Room Air 06/16/24 10:15 BMI result Body Mass Index 38.6 Tobacco/Smoking Status: Tobacco use Status Tobacco use date assessed 06/16/24 06/16/24 10:18 Patient Tobacco Use Status Never used Tobacco 06/16/24 10:18 e-Cigarette/Vaping Use Never Used 06/16/24 10:18 Thrive Assessment: Date of Thrive Assessment Date Thrive assessed 06/16/24 06/16/24 10:18 Currently or been in a relationship where the following occur: No concerns reported Coding Level of Care Code Est Pt Level 3 (70270) Est Pt Prev Care >65y(74990) Diagnoses Encounter for general adult medical examination with abnormal findings Z00.01 Moderate persistent asthma without complication J45.40 Asthma complication type: uncomplicated Class 2 obesity due to excess calories without serious comorbidity with body mass index (BMI) of 39.0 to 39.9 in adult E66.09; Z68.39 Obesity classification: adult class 2 (BMI 35 - 39.9) Serious obesity comorbidity presence: without serious comorbidity Body mass index: BMI 39.0-39.9 Chronic GERD K21.9 Complex regional pain syndrome i of left lower limb G90.522 Rheumatoid arthritis of other site with positive rheumatoid factor M05.7A Rheumatoid arthritis location: other site Rheumatoid factor presence: with rheumatoid factor Additional Codes YONATAN-7 Assessment Billing - YONATAN-7 Assessment Tool: YONATAN-7 Assessment 48298 ([id number]) Assessment & Plan Assessment & Plan (1) Encounter for general adult medical examination with abnormal findings: Code(s): Z00.01 - Encounter for general adult medical examination with abnormal findings Category: Medical (2) Asthma, moderate persistent: Code(s): J45.40 - Moderate persistent asthma, uncomplicated Category: Medical Qualifiers: Asthma complication type: uncomplicated Qualified Code(s): J45.40 - Moderate persistent asthma, uncomplicated (3) Obesity due to excess calories: Code(s): E66.09 - Other obesity due to excess calories Category: Medical Qualifiers: Obesity classification: adult class 2 (BMI 35 - 39.9) Serious obesity comorbidity presence: without serious comorbidity Body mass index: BMI 39.0- 39.9 Qualified Code(s): E66.09 - Other obesity due to excess calories; Z68.39 - Body mass index [BMI] 39.0-39.9, adult (4) Chronic GERD: Code(s): K21.9 - Gastro-esophageal reflux disease without esophagitis Category: Medical (5) Complex regional pain syndrome i of left lower limb: Code(s): G90.522 - Complex regional pain syndrome I of left lower limb Category: Medical (6) Rheumatoid arthritis: Code(s): M06.9 - Rheumatoid arthritis, unspecified Category: Medical Qualifiers: Rheumatoid arthritis location: other site Rheumatoid factor presence: with rheumatoid factor Qualified Code(s): M05.7A - Rheumatoid arthritis with rheumatoid factor of other specified site without organ or systems involvement Plan Chief Complaint Persistent left leg pain due to complex regional pain syndrome patient came in for physical exam appointment Health Maintenance - Mammogram due this year, previously done last year - Colonoscopy declined by the patient - Flu vaccine up-to-date - High cholesterol with LDL at 144, requiring monitoring - Discussion on weight management Assessment and Plan 69-year-old female with a history of complex regional pain syndrome in the left lower extremity, presenting for her annual physical examination with concerns about unresolved leg pain, preventive care updates, and high cholesterol levels. The patient's leg pain is attributed to nerve damage incurred from a fall three years ago. She has declined further colonoscopy screenings but requires a mammogram. Hyperlipidemia remains a concern, with recent LDL levels indicating the need for continuous monitoring. Hearing loss and difficulties in obtaining hearing aids due to coverage issues were also discussed. The patient's ma nagement plan is complicated by Workman's Compensation disputes limiting access to pain management resources. 1. Nerve Damage Damage acknowledged as a long-standing issue with no viable intervention due to the elapsed time since the incident. The patient is aware of the limitations in nerve interventions. Consider physical therapy for functional support as tolerated. 2. Fall History With Residual Pain Not directly treated but complications acknowledged in ongoing leg and nerve pain. Evaluate need for mobility aids pending a consultation with a vocational rehabilitation teacher for equipment assessment. 3. Hyperlipidemia Recommend continued monitoring of lipid profile with Fasting LDL retests. The patient is instructed to address dietary habits for cholesterol management. V egetarian sources of dietary fiber and plant sterols encouraged. A lab requisition for cholesterol monitoring will be provided. 4. Hearing Loss Patient reports difficulties in obtaining hearing aids as [employer] does not cover the devices. Suggested exploring alternative services and financial assistance programs available through hearing aid suppliers. 5. Complex Regional Pain Syndrome, Left Lower Extremity The condition is attributed to nerve damage following a fall several years ago. The patient has previously been referred to pain management, but coverage issues persist with Workman's Compensation limiting access to proposed interventions. Current management involves home remedies like heat application as temporary pain relief. Future considerations involve navigating Workman's Compensation for comprehensive pain management evaluation. 6-rheumatoid arthritis managed by Rheumatology 7- asthma stable 8-GERD stable [facility]: Rheumatology Employment - On Workman's Compensation due to leg injury and attends regular evaluations every eight weeks. Diagnostic results - Labs: High cholesterol reported with LDL at 144; previously assessed in March by fill manager. Review of Systems - Musculoskeletal: Reports persistent pain in the left leg due to nerve damage. - Integumentary: Denies current swelling. General: No fever no chills neurological: No headaches no dizziness ear nose throat: No sore throat no hearing difficulty no ear pain cardiovascular: No syncope, no chest pain, no palpitations gastrointestinal: No nausea vomiting or diarrhea endocrine: No polyuria polydipsia no heat intolerance genitourinary: No dysuria skin: No new complaints Physical Exam General: Cooperative, healthy appearing, comfortable, no acute distress and well developed Orientation: Patient oriented x3 Limitations: Limited mobility due to left leg pain Head: Normal to inspection Ears: but patient mentions needing a hearing test and potential hearing aids Nose: Normal external nose present Face and sinus: Normal facial exam Eyes: Appearance normal, both eyes and all related structures Neck: Normal visual inspection and supple, neck is fully mobile Breast exam: Within normal limit Respiratory: Normal respiratory effort and able to speak in complete sentences. Clear to auscultation bilaterally Cardiovascular: S1 and S2 GI: Normal to inspection. Soft to palpation and nontender Skin: Turgor normal Neuro: Patient oriented x3, motor sensory intact. balance affected due to left leg pain Extremities: Complex regional pain syndrome in left lower extremity, no swelling in arms, shoulders full range of motion, back is without pain on the kidneys Patient Instructions: Lab order printed and handed to patient she will have it done in [facility] and provide me with reports Follow-up six-month physical exam 1 year Referral to OBGYN placed Orders: Orders Complete Blood Count Auto Diff Today E66.09 - Other obesity due to excess calories, G90.522 - Complex regional pain syndrome I of left lower limb, K21.9 - Gastro-esophageal reflux disease without esophagitis, M05.7A - Rheumatoid arthritis with rheumatoid factor of other specified site without organ or systems involvement, Z00.01 - Encounter for general adult medical examination with abnormal findings, Z68.39 - Body mass index [BMI] 39.0-39.9, adult Lipid Panel Today E66.09 - Other obesity due to excess calories, G90.522 - Complex regional pain syndrome I of left lower limb, K21.9 - Gastro-esophageal reflux disease without esophagitis, M05.7A - Rheumatoid arthritis with rheumatoid factor of other specified site without organ or systems involvement, Z00.01 - Encounter for general adult medical examination with abnormal findings, Z68.39 - Body mass index [BMI] 39.0-39.9, adult Comprehensive [place]. Panel Fast Today E66.09 - Other obesity due to excess calories, G90.522 - Complex regional pain syndrome I of left lower limb, K21.9 - Gastro-esophageal reflux disease without esophagitis, M05.7A - Rheumatoid arth ritis with rheumatoid factor of other specified site without organ or systems involvement, Z00.01 - Encounter for general adult medical examination with abnormal findings, Z68.39 - Body mass index [BMI] 39.0-39.9, adult Vitamin D 25-OH (D2 and D3) Today E66.09 - Other obesity due to excess calories, G90.522 - Complex regional pain syndrome I of left lower limb, K21.9 - Gastro-esophageal reflux disease without esophagitis, M05.7A - Rheumatoid arthritis with rheumatoid factor of other specified site without organ or systems involvement, Z00.01 - Encounter for general adult medical examination with abnormal findings, Z68.39 - Body mass index [BMI] 39.0-39.9, adult TSH reflex Free T4 Today E66.09 - Other obesity due to excess calories, G90.522 - Complex regional pain syndrome I of left lower limb, K21.9 - Gastro- esophageal reflux disease without esophagitis, M05.7A - Rheumatoid arthritis with rheumatoid factor of other specified site without organ or systems involvement, Z00.01 - Encounter for general adult medical examination with abnormal findings, Z68.39 - Body mass index [BMI] 39.0-39.9, adult Vitamin B12 Today E66.09 - Other obesity due to excess calories, G90.522 - Complex regional pain syndrome I of left lower limb, K21.9 - Gastro-esophageal reflux disease without esophagitis, M05.7A - Rheumatoid arthritis with rheumatoid factor of other specified site without organ or systems involvement, Z00.01 - Encounter for general adult medical examination with abnormal findings, Z68.39 - Body mass index [BMI] 39.0-39.9, adult Referrals [employer] Referral Z01.419 - Encounter for gynecological examination (general) (routine) without abnormal findings
== END 2024-06-16 10:44 | disposition home or self-care (01) ==
PROVIDERS: PCP Internal Medicine; Visit Provider Internal Medicine
DX: Z00.00 Encounter for general adult medical examination without abnormal findings (principal); M05.7A Rheumatoid arthritis with rheumatoid factor of other specified site without organ or systems involvement; E66.09 Other obesity due to excess calories; Z68.39 Body mass index [BMI] 39.0-39.9, adult; J45.40 Moderate persistent asthma, uncomplicated; K21.9 Gastro-esophageal reflux disease without esophagitis; G90.522 Complex regional pain syndrome I of left lower limb

== ENCOUNTER → 2024-06-16 10:04 | Outpatient (BNVA) | payer OTHER, SELFPAY | PROVIDERS: PCP Internal Medicine; Visit Provider Internal Medicine | DX: Z00.01 Encounter for general adult medical examination with abnormal findings (principal); J45.40 Moderate persistent asthma, uncomplicated; E66.09 Other obesity due to excess calories; Z68.39 Body mass index [BMI] 39.0-39.9, adult; K21.9 Gastro-esophageal reflux disease without esophagitis; G90.522 Complex regional pain syndrome I of left lower limb; M05.7A Rheumatoid arthritis with rheumatoid factor of other specified site without organ or systems involvement | CPT/HCPCS: 96127; 99397 ==

== ENCOUNTER → 2024-07-15 08:35 | Outpatient (BNVA) | payer OTHER, SELFPAY | PROVIDERS: PCP Internal Medicine; Visit Provider Physician Assistant | DX: S86.312D Strain of muscle(s) and tendon(s) of peroneal muscle group at lower leg level, left leg, subsequent encounter (principal); W01.0XXD Fall on same level from slipping, tripping and stumbling without subsequent striking against object, subsequent encounter | CPT/HCPCS: 99213 ==

== ENCOUNTER → 2024-08-26 08:45 | Outpatient (BNVA) | payer OTHER, SELFPAY | PROVIDERS: PCP Internal Medicine; Visit Provider Physician Assistant | DX: G57.92 Unspecified mononeuropathy of left lower limb (principal); Z91.81 History of falling | CPT/HCPCS: 99214 ==

== ENCOUNTER → 2024-10-07 08:56 | Outpatient (BNVA) | payer OTHER, SELFPAY | PROVIDERS: PCP Internal Medicine; Visit Provider Physician Assistant | DX: S84.12XD Injury of peroneal nerve at lower leg level, left leg, subsequent encounter (principal); W01.0XXD Fall on same level from slipping, tripping and stumbling without subsequent striking against object, subsequent encounter | CPT/HCPCS: 99214 ==

== ENCOUNTER → 2024-12-02 08:42 | Outpatient (BNVA) | payer OTHER, SELFPAY | PROVIDERS: PCP Internal Medicine; Visit Provider Physician Assistant | DX: S84.92XD Injury of unspecified nerve at lower leg level, left leg, subsequent encounter (principal); W01.0XXD Fall on same level from slipping, tripping and stumbling without subsequent striking against object, subsequent encounter | CPT/HCPCS: 99214 ==

== ENCOUNTER 2024-12-14 08:22 | Outpatient (AMB) | payer MEDICARE, MEDICAID, SELFPAY ==
[2024-12-14 08:24] VITALS: BP 118/70; PULSE 88; O2SAT 97; BMI 39.5
--- NOTE | 2024-12-14 08:24 | A.OFFPC_ITS ---
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: No Accompanied by: Self / Same As Patient Allergies pregabalin [From Lyrica] Adverse Reaction (Verified 12/14/24 08:25) drowsiness Medication List - Last Reconciled 12/14/24 by Liz Castro MD acetaminophen (Tylenol Extra Strength) 500 mg PO QID PRN albuterol sulfate 90 mcg/actuation (Ventolin HFA) 1 inh inhalation Q6H 30 days Arnuity Ellipta 100 mcg/actuation (fluticasone furoate) 1 inh inhalation DAILY NS hydroxychloroquine 200 mg PO BID omeprazole 20 mg PO DAILY 90 days Tobacco use date assessed: 12/14/24 Fall risk assessment: No Falls in past year Last assessed Fall Risk: 12/14/24 Dental Screening Dental Screen Date: 12/14/24 Did you have a dental visit in the last 12 months?: Yes Did you have a dental problem in the last 6 months where you did not have access to dental care?: No Was dental information given to patient?: Patient has dentist HPI 6m follow up HPI Details History - The patient is a 69-year-old female pr esenting for follow-up of chronic leg pain secondary to common peroneal neuropathy and management of asthma - Chronic leg pain due to nerve damage d eveloped approximately three years ago. - The patient reports the leg pain persi sts and believes it is unlikely to resolve due to the nature of nerve damage. - asthma is stable patient is taking roseann ntenance inhaler regularly - GERD stable with PPI Medical History: - Chronic leg pain secondary to nerve da mage developed three years ago.. - Asthma managed with inhalers. - GERD managed with Omeprazole. - rheumatoid arthritis treated with hydr oxychloroquine through Rheumatology Medications: - Albuterol inhaler: as needed for asthm a. - Maintenance inhaler (unspecified): Saturnino en routinely for asthma at [facility]. - Omeprazole: For management of GERD. - Hydroxychloroquine Social History: - The patient reports no history of smok ing. - The patient has asthma, which could im ply environmental considerations at home or work. Diagnostic Results: - Labs from August 2022: - LDL cholestero l: 111 mg/dL - Hemoglobin and CBC: Normal - Electrolytes: Normal - Creatinine: 0.80 mg/dL - Glucose: 87 mg/dL - Liver enzymes: Stable - GFR: 81 mL/min/1.73m? - Thyroid function: Normal Problem List - Chronic leg pain due to nerve damage. - Dyslipidemia. - Asthma. - GERD. Patient Instructions - Schedule a return visit in May fo r a physical examination. - Ensure to have new blood tests complet ed prior to the May appointment. - Refill prescriptions for medications a s needed. Review of Systems - General: No fever no chills - Neurological: No headaches no dizziness - Ear nose throat: No sore throat no hearing difficulty no ear pain - Cardiovascular: No syncope, no chest pain, no palpitations - Gastrointestinal: No nausea vomiting or diarrhea - Endocrine: No polyuria polydipsia no heat intolerance - Genitourinary: No dysuria , no blood in urine Physical Exam General: No acute distress HEENT: No acute findings Neck: Supple Respiratory system: Able to talk in full sentences, no audible wheeze, lungs are clear Cardiovascular: S1-S2 regular in rate and rhythm Gastrointestinal: No pain, no nausea, vomiting Extremities: No new findings HOIST WORKER: Alert awake oriented x3 motor sensory intact except left leg patient have slight limp Skin: Normal turgor [facility] Medical History 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 1. Little interest or pleasure in doing things: not at all 2. Feeling down, depressed, or hopeless: not at all 3. Trouble falling or staying asleep, or sleeping too much: not at all 4. Feeling tired or having little energy: not at all 5. Poor appetite or overeating: not at all 6. Feeling bad about yourself - or that you are a failure or have let yourself or your family down: not at all 7. Trouble concentrating on things, such as reading the newspaper or watching television: not at all 8. Moving or speaking so slowly that other people could have noticed. Or the opposite - being so fidgety or restless that you have been moving around a lot more than usual: not at all 9. Thoughts that you would be better off or of hurting yourself in some way: not at all Total score: 0 Depression Screening Interpretation: Negative Depression Screening Done: Yes 03419 - PHQ-9 Billing: Yes Source: Developed by Drs. Man Allison, Sonia Gandara, Livan Boyer and colleagues, with an educational autumn from [employer] Thrive Questionnaire Date Thrive assessed: 12/14/24 I am a: Patient What is your living situation today?: I have a steady place to live Within the past 12 months, did the food you bought not last and you didn't have the money to get more?: Never true Within the past 12 months, did you worry whether your food would run out before you got money to buy more?: Never true Do you have trouble paying for medicines?: No Do you have trouble getting transportation to medical appointments?: No Do you have trouble paying your heating and electricity bill?: No Do you have trouble taking care of your child, family member or friend?: No Do you have trouble with day-to-day activities such as bathing, preparing meals, shopping, managing finances, etc.?: No Are you currently unemployed and looking for a job?: No Are you interested in more education?: No Please select the resources that you would like help with: None Currently or been in a relationship where the following occur: No concerns reported THRIVE Score: 0 AUDIT C Alcohol Use Questionnaire (AUDIT-C) 1. How often do you have a drink containing alcohol?: Never 3. How often do you have six or more drinks on one occasion?: Never Total Score: 0 Score Reviewed/Action Taken: Yes YONATAN-7 AMB Questionnaire YONATAN-7 Date YONATAN - 7 assessed: 12/14/24 Feeling nervous, anxious, or on edge: 0 = Not at all Not being able to stop or control worryin = Not at all Worrying too much about different things: 0 = Not at all Trouble relaxin = Not at all Being so restless that it is hard to sit still: 0 = Not at all Becoming easily annoyed or irritable: 0 = Not at all Feeling afraid as if something awful might happen: 0 = Not at all Total YONATAN-7 score (0-4 normal; 5-9 mild; 10-14 moderate; 15-21 severe): 0 Source: Developed by Drs. Man Allison, Sonia Gandara, Livan Boyer and colleagues, with an educational autumn from [employer] YONATAN-7 Assessment Billing YONATAN-7 Assessment Tool: YONATAN-7 Assessment 72529 Physical exam (Primary Care) Vital Signs: Last Vital Signs Pulse 88 12/14/24 08:24 BP 118/70 12/14/24 08:24 Pulse Ox 97 12/14/24 08:24 Oxygen Delivery Method Room Air 12/14/24 08:24 BMI result Body Mass Index 39.5 Tobacco/Smoking Status: Tobacco use Status Tobacco use date assessed 12/14/24 12/14/24 08:26 Patient Tobacco Use Status Never used Tobacco 12/14/24 08:26 e-Cigarette/Vaping Use Never Used 12/14/24 08:26 PHQ-9: PHQ-9 Score PHQ-9: Total score 0 12/14/24 08:26 Depression Screening Interpretation: Negative Thrive Assessment: Date of Thrive Assessment Date Thrive assessed 12/14/24 12/14/24 08:26 Currently or been in a relationship where the following occur: No concerns reported Coding Level of Care Code Est Pt Level 4 (11281) Complex EM visit Add On G2211 Diagnoses Moderate persistent asthma without complication J45.40 Asthma complication type: uncomplicated Chronic GERD K21.9 Hearing difficulty of both ears H91.93 Laterality: bilateral Complex regional pain syndrome i of left lower limb G90.522 Chronic pain syndrome G89.4 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 G57.02 Class 2 obesity due to excess calories without serious comorbidity with body mass index (BMI) of 39.0 to 39.9 in adult E66.09; Z68.39 Obesity classification: adult class 2 (BMI 35 - 39.9) Serious obesity comorbidity presence: without serious comorbidity Body mass index: BMI 39.0-39.9 Left leg weakness R29.898 Additional Codes YONATAN-7 Assessment Billing - YONATAN-7 Assessment Tool: YONATAN-7 Assessment 42366 ([id number]) PHQ-9 - 20907 - PHQ-9 Billing: Yes ([id number]) Assessment & Plan Assessment & Plan (1) Asthma, moderate persistent: Code(s): J45.40 - Moderate persistent asthma, uncomplicated Category: Medical Qualifiers: Asthma complication type: uncomplicated Qualified Code(s): J45.40 - Moderate persistent asthma, uncomplicated (2) Chronic GERD: Code(s): K21.9 - Gastro-esophageal reflux disease without esophagitis Category: Medical (3) Difficulty hearing: Code(s): H91.90 - Unspecified hearing loss, unspecified ear Category: Medical Qualifiers: Laterality: bilateral Qualified Code(s): H91.93 - Unspecified hearing loss, bilateral (4) Complex regional pain syndrome i of left lower limb: Code(s): G90.522 - Complex regional pain syndrome I of left lower limb Category: Medical (5) Chronic pain syndrome: Code(s): G89.4 - Chronic pain syndrome Category: Medical (6) 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: Code(s): G57.02 - Lesion of sciatic nerve, left lower limb Category: Medical (7) Obesity due to excess calories: Code(s): E66.09 - Other obesity due to excess calories Category: Medical Qualifiers: Obesity classification: adult class 2 (BMI 35 - 39.9) Serious obesity comorbidity presence: without serious comorbidity Body mass index: BMI 39.0- 39.9 Qualified Code(s): E66.09 - Other obesity due to excess calories; Z68.39 - Body mass index [BMI] 39.0-39.9, adult (8) Left leg weakness: Code(s): R29.898 - Other symptoms and signs involving the musculoskeletal system Category: Medical Plan History - The patient is a 69-year-old female presenting for follow-up of chronic leg pain secondary to common peroneal neuropathy and management of asthma - Chronic leg pain due to nerve damage developed approximately three years ago. - The patient reports the leg pain persists and believes it is unlikely to resolve due to the nature of nerve damage. - asthma is stable patient is taking maintenance inhaler regularly - GERD stable with PPI Medical History: - Chronic leg pain secondary to nerve damage developed three years ago.. - Asthma managed with inhalers. - GERD managed with Omeprazole. - rheumatoid arthritis treated with hydroxychloroquine through Rheumatology Medications: - Albuterol inhaler: as needed for asthma. - Maintenance inhaler (unspecified): Taken routinely for asthma at [facility]. - Omeprazole: For management of GERD. - Hydroxychloroquine Social History: - The patient reports no history of smoking. - The patient has asthma, which could imply environmental considerations at home or work. Diagnostic Results: - Labs from August 2022: - LDL cholesterol: 111 mg/dL - Hemoglobin and CBC: Normal - Electrolytes: Normal - Creatinine: 0.80 mg/dL - Glucose: 87 mg/dL - Liver enzymes: Stable - GFR: 81 mL/min/1.73m? - Thyroid function: Normal Problem List - Chronic leg pain due to nerve damage. - Dyslipidemia. - Asthma. - GERD. Patient Instructions - Schedule a return visit in May for a physical examination. - Ensure to have new blood tests completed prior to the May appointment. - Refill prescriptions for medications as needed. Orders: Orders Comprehensive Met. Panel Today E66.09 - Other obesity due to excess calories, G57.02 - Lesion of sciatic nerve, left lower limb, G89.4 - Chronic pain syndrome, G90.522 - Complex regional pain syndrome I of left lower limb, H91.93 - Unspecified hearing loss, bilateral, J45.40 - Moderate persistent asthma, uncomplicated, K21.9 - Gastro-esophageal reflux disease without esophagitis, R29.898 - Other symptoms and signs involving the musculoskeletal system, Z68.39 - Body mass index [BMI] 39.0-39.9, adult Complete Blood Count Auto Diff Today E66.09 - Other obesity due to excess calories, G57.02 - Lesion of sciatic nerve, left lower limb, G89.4 - Chronic pain syndrome, G90.522 - Complex regional pain syndrome I of left lower limb, H91.93 - Unspecified hearing loss, bilateral, J45.40 - Moderate persistent asthma, uncomplicated, K21.9 - Gastro-esophageal reflux disease without esophagitis, R29.898 - Other symptoms and signs involving the musculoskeletal system, Z68.39 - Body mass index [BMI] 39.0-39.9, adult Medications: Refilled albuterol sulfate 90 mcg/actuation (Ventolin HFA) 1 inh inhalation Q6H 30 days 8.5 grams 2RF omeprazole 20 mg PO DAILY 90 days 90 caps 0RF Arnuity Ellipta 100 mcg/actuation (fluticasone furoate) 1 inh inhalation DAILY 30 ea 3RF NS
--- OUTSIDE RECORDS SUMMARY | 2024-12-14 08:35 | XMS_ITS | Clinical Summary ---
Author Organization [facility] Address [address] [address] Phone Care Team Providers Care Pr Manager Name Role Phone Liz Castro MD Primary Care Provider [phone] Allergies No known active allergies Medications omeprazole (PriLOSEC) [address] capsule 02/21/2021 Active hydroxychloroqui ne (PLAQUENIL) 200 MG tablet 03/26/2021 Activ e albuterol HFA (PROVENTIL HFA;VENTOLIN HFA) 108 (90 Base) MCG/ACT inhaler 2 puffs by Other route 03/21/2020 Active Acetaminophen (Tylenol) 325 MG capsule Take 1 tablet by mouth Active Arnuity Ellipta 100 MCG/ACT aerosol powder Inhale 1 puff in the morning. 10/15/2023 Active Active Problems Problem Noted Date Diagnosed Date Other specified counseling 09/14/202104/17 Overview (04/17/2023): Last Assessment & Plan: I reviewed with Adela that in case she would contract COVID-19 infection she should get in touch with me within the first 24-48 hours to get monoclonal antibody therapy due to her concomitant asthma and obesity that are putting her at much greater risk for complications. Blood in urine 04/16/2021 Hyperkalemia 02/25/2019 Overview (04/16/2021): Last Assessment & Plan: Proper hydration and low potassium diet. Close follow-up with telecom assistant as scheduled. Hypercalcemia 11/29/2018 Overview (04/16/2021): Last Assessment & Plan: Close follow-up with her tuber helper as scheduled Drug therapy finding 11/06/2017 04/17/2023 Overview (04/17/2023): Last Assessment & Plan: Take exactly as prescribed. Daily sun protection. Follow ruling machine feeder exactly as scheduled to monitor for ocular side effects Fibromyalgia 01/28/2017 Overview (04/16/2021): Follows with [facility] Gastroesophageal reflux disease 01/28/2017 Osteopenia 01/28/2017 Vitamin D deficiency 01/28/2017 Arthritis 12/23/2016 Overview (04/16/2021): Follows with [facility] Dr. Anderson Degenerative joint disease involving multiple sebastián ints 12/23/2016 Overview (04/16/2021): Follows with [facility] Secondary hyperparathyroidism 12/23/2016 Overview (04/16/2021): Follows with nephrology and endocrinology status post parathyroidectomy July 2019 Immunizations Immunization Administration Dates Next Due Influenza, MDCK, Quadrivalent, with preservative 04/08/2018,03/25/2017 Influenza, Quadrivalent, Preservative Free 04/14 Influenza, Unspecified 05/30/2022 Pfizer SARS-COV-2 10/02/2020,09/10/2020 Pneumococcal Polysaccharide 01/28/2009 Td 05/30/2004 Tdap 03/25/2017 Family History Relation Status Comments Father Unknown Mother Unknown Social History Tobacco Use Types Packs/Day Years Used Date Smoking Tobacco: Never Smokeless Tobacco: Never Tobacco Cessation:Counseling Given: Not Answered Alcohol Use Standard Drinks/Week Comments No 0 (1 standard drink = 0.6 oz pur e alcohol) Comments Unknown Sex and Gender Information Value Date Recorded Sex Assigned at Not on file Legal Sex Female 5:02 PM EST Gender Identity Not on file Sexual Orientation Not on file Last Filed Vital Signs Vital Sign Reading Time Taken Comments Blood Pressure 118/60 04/21/2024 2:08 PM EDT Pulse 73 04/18/2023 8:36 AM EDT Temperature - - Respiratory Rate - - Oxygen Saturation 97% 04/18/2023 8:36 AM EDT Inhaled Oxygen Concentration - - Weight 100 kg (221 lb) 04/21/2024 2:08 PM EDT Height 160 cm (5' 3 ) 04/16/2021 3:31 PM EDT Body Mass Index 39.15 04/16/2021 3:31 PM EDT Plan of Treatment Health Maintenance Due Date Last Done Comments Breast Cancer Screening 1955 Colorectal Cancer Screening: Annual FOBT 2006 Colorectal Cancer Screening: Colonoscopy 2006 Colorectal Cancer Screening: Sigmoidoscopy 2006 Pneumococcal Vaccine: 50+ Years (2 of 2 - PCV) 01/28/2010 01/28/2009 Pneumococcal Vaccine: Peds (0 to 5 Years) and At-Risk Patients (6 to 49 Years) Discontinued 01/28/2009 Influenza Vaccine Completed 04/21/2024, , 04/14/2019, Additional history exists Hepatitis B Vaccine Aged Out No longe r eligible based on patient's age to complete this topic Insurance Medicaid [place] [facility] Care Teams Pr Manager Relationship Specialty Start Date End Date Liz Castro MD [address] [place] [id number] PCP - General Internal Medicine 04/21/24
== END 2024-12-14 09:03 | disposition home or self-care (01) ==
LOC: HO.HMCC 08:23
PROVIDERS: PCP Internal Medicine; Visit Provider Internal Medicine
DX: J45.40 Moderate persistent asthma, uncomplicated (principal); K21.9 Gastro-esophageal reflux disease without esophagitis; H91.93 Unspecified hearing loss, bilateral; G90.522 Complex regional pain syndrome I of left lower limb; G89.4 Chronic pain syndrome; G57.02 Lesion of sciatic nerve, left lower limb; E66.09 Other obesity due to excess calories; Z68.39 Body mass index [BMI] 39.0-39.9, adult; R29.898 Other symptoms and signs involving the musculoskeletal system

== ENCOUNTER → 2024-12-14 08:22 | Outpatient (BNVA) | payer MEDICARE, MEDICAID, SELFPAY | PROVIDERS: PCP Internal Medicine; Visit Provider Internal Medicine | DX: K21.9 Gastro-esophageal reflux disease without esophagitis (principal); J45.909 Unspecified asthma, uncomplicated; M06.9 Rheumatoid arthritis, unspecified; J45.40 Moderate persistent asthma, uncomplicated; H91.93 Unspecified hearing loss, bilateral; G90.522 Complex regional pain syndrome I of left lower limb; G89.4 Chronic pain syndrome; G57.02 Lesion of sciatic nerve, left lower limb; R29.898 Other symptoms and signs involving the musculoskeletal system; E66.812 Obesity, class 2; E66.09 Other obesity due to excess calories; Z68.39 Body mass index [BMI] 39.0-39.9, adult | CPT/HCPCS: 96127; 99212 ==

== ENCOUNTER → 2025-02-02 08:39 | Outpatient (BNVA) | payer OTHER, SELFPAY | PROVIDERS: PCP Internal Medicine; Visit Provider Physician Assistant | DX: S84.92XD Injury of unspecified nerve at lower leg level, left leg, subsequent encounter (principal); W18.30XD Fall on same level, unspecified, subsequent encounter | CPT/HCPCS: 99213 ==

== ENCOUNTER 2025-02-08 07:39 | Outpatient (AMB) | payer MEDICARE, MEDICAID, SELFPAY ==
--- OUTSIDE RECORDS SUMMARY | 2025-02-08 07:41 | XMS_ITS | Clinical Summary ---
Author Organization [facility] Address [address] [place] [phone] Phone Care Team Providers Care Marketing Community Liaison Name Role Phone Liz Castro MD Primary Care Provider [phone] Allergies No known active allergies Medications omeprazole [...] and low potassium diet. Close follow-up with flask carrier as scheduled. Hypercalcemia 11/29/2018 Overview (04/16/2021): Last Assessment & Plan: Close follow-up with her decating machine operator as scheduled Drug therapy finding 11/06/2017 04/17/2023 Overview (04/17/2023): Last Assessment & Plan: Take exactly as prescribed. Daily sun protection. Follow feeder/folder exactly as scheduled to monitor for ocular [...] (2 of 2 - PCV) 01/28/2010 01/28/2009 Influenza Vaccine (#1) 2025 , 05/30/2022, 04/14/2019, Additional history exists Pneumococcal Vaccine: Peds (0 to 5 Years) and At-Risk Patients (6 to 49 Years) Discontinued 01/28/2009 Hepatitis B Vaccine Aged Out No longe r eligible based on patient's age to complete this topic Insurance Medicaid [place] [facility] Care Teams Marketing Community Liaison Relationship Specialty Start Date End Date Liz Castro MD [address] [place] [id number] PCP - General Internal Medicine 04/21/24
--- OUTSIDE RECORDS SUMMARY | 2025-02-08 07:41 | XMS_ITS | Clinical Summary ---
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 0 11/01/2016 Active Acetaminophen (TYLENOL) 325 MG Cap Take 1 Tab by mouth as needed. 0 Active Diphenhydramine-APAP , sleep, (TYLENOL PM EXTRA STRENGTH OR) Take 1 Tab by mouth at bedtime. 0 Active fluticasone (FLOVENT HFA) 220 MCG/ACT inhaler Inhale 2 Puffs into the lungs 2 times daily. 1 Inhaler 5 09/06/2020 Active Ventolin HFA 108 (90 Base) MCG/ACT Aero Soln Inhale 2 Puffs into the lungs every 6 hours as needed for Cough or Wheezing. 1 Inhaler 0 12/04/2020 Active omeprazole (PRILOSEC) 20 MG capsule Take 1 capsule by mouth daily. 90 capsule 1 05/16/2021 Active Active Problems Problem Noted Date Vitamin D deficiency 01/28/2017 GERD (gastroesophageal reflux disease) 0 01/28/2017 Morbid obesity with BMI of 40.0-44.9, ad ult 01/28/2017 Hearing loss 01/28/2017 Overview: Hearing aids Osteopenia 01/28/2017 Overview: Follows with [facility] Cataracts, bilateral 01/28/2017 Fibromyalgia 01/28/2017 Overview: Follows with [facility] Microscopic hematuria 01/28/2017 Overview: Follows with urology, unclear eitiology. Normal CT and cystoscopy Asthma 12/23/2016 Secondary hyperparathyroidism 12/23/2016 Overview: Follows with nephrology and endocrinology status post parathyroidectomy July 2019 Inflammatory arthritis 12/23/2016 Overview: Follows with [facility] Dr. Anderson Primary osteoarthritis involving multipl e joints 12/23/2016 Overview: Follows with [facility] Varicose veins of legs 12/23/2016 Overview: [facility] Resolved Problems Problem Noted Date Resolved Date Primary hyperparathyroidism 05/19/201905/01 Overview: Follows with endocrinology Diverticulosis 01/28/2017 03/25/2017 Depression 01/28/2017 03/25/2017 Hyperlipidemia 01/28/2017 03/25/2017 Immunizations Name Administration Dates Next Due Influenza Vaccine-quadrivalent 4 Years Plus 03/30,03/25/2017 Pneumoccoccal(Adult) Polysaccharide PPSV23 01/28 TD (STATE SUPPLIED FOR ADULTS AND CHILDREN) 06/2003 Tdap 03/25/2017 Family History Medical History Relation Name Comments Diabetes Aunt HTN, hyperlipid emia Relation Name Status Comments Aunt Social History Tobacco Use Types Packs/Day Years Used Date Smoking Tobacco: Never Smokeless Tobacco: Never Alcohol Use Standard Drinks/Week Comments No 0 (1 standard drink = 0.6 oz pur e alcohol) Sex Assigned at Date Recorded Not on file Last Filed Vital Signs Vital Sign Reading Time Taken Comments Blood Pressure 108/60 09/06/2020 9:26 AM EST Pulse 72 09/06/2020 9:26 AM EST Temperature 36.6 C (97.8 F) 09/06/2020 9:26 AM EST Respiratory Rate 14 09/06/2020 9:26 AM EST Oxygen Saturation - - Inhaled Oxygen Concentration - - Weight 95.3 kg (210 lb) 09/06/2020 9:26 AM EST Height 157.5 cm (5' 2 ) 09/06/2020 9:26 AM EST Body Mass Index 38.41 09/06/2020 9:26 AM EST Plan of Treatment Health Maintenance Due Date Last Done Comments Covid-19 Vaccine (#1) 1955 SHINGLES VACCINE (1 of 2) 2007 COLON CANCER SCREEN WITH STO OL CARD 12/26/2009 12/26/2008 MAMMOGRAM 05/15/2019 05/15/2018 (Exte rnal Completion), 05/15/2018 (External Completion), 05/15/2018, Additional history exists DEPRESSION SCREEN 03/09/2022 03/09/2021 (Co mpleted), 04/08/2019, 04/08/2018, Additional history exists BONE DENSITY SCREENING 2022 PNEUMOCOCCAL VACCINE (2 - PCV) 2022 01/28/2009 BMI CHECK/ADVISE 06/30/2024 03/09/2021, 03/2021, 09/06/2020, Additional history exists INFLUENZA (#1) 2025 02/28/2020 (Comp leted), 04/08/2018, 04/08/2018, Additional history exists CHOLESTEROL SCREENING 03/16/2025 03/16/2020 , 10/07/2018, 03/27/2017, Additional history exists DTAP/TDAP/TD (2 - Td or Tdap) 03/25/2027, 03/25/2017, 05/30/2004 HEPATITIS C SCREENING Completed 03/27/2017, 017 Care Teams Foxing Cutting Machine Operator Relationship Specialty Start Date End Date Gabby Gonzalez MD PCP - General Internal Medicine 12/16/16
--- OUTSIDE RECORDS SUMMARY | 2025-02-08 07:41 | XMS_ITS | Encounter Summary ---
Author Organization [facility] Address [address] [place] [address] Phone Care Team Providers Care Billiard Parlor Manager Name Role Phone Gabby Puri MD Primary Care Provider [phone] Liz Castro MD Primary Care Provider [phone] Encounter Details Date Type Department Care Team (Late st Contact Info) Description 06/16/2019 Transcribe Orders [facility] [address] [place] [address] Shola Torres MD [address] [address] Hematuria syndrome (Primary Dx) Social History Tobacco Use Types Packs/Day Years Used Date Smoking Tobacco: Never Smokeless Tobacco: Never Alcohol Use Standard Drinks/Week Comments No 0 (1 standard drink = 0.6 oz pur e alcohol) Comments Unknown Sex and Gender Information Value Date Recorded Sex Assigned at Not on file Legal Sex Female 9:52 PM EDT Gender Identity Not on file Sexual Orientation Not on file documented as of this encounter Plan of Treatment Upcoming Encounters Date Type Department Care Team (Late st Contact Info) Description 07/25/2025 9:00 AM EST Office Visit [facility] Rheumatology [address] [place] [address] Patti Souza MD [address], [address] [place] [address] documented as of this encounter Results * (ABNORMAL) Urinalysis (06/16/2019 10:34 AM EST) COLOR Yellow Yellow [facility] CLARITY Clear [facility] GLUCOSE Negative Negative [facility] BILI Negative Negative [facility] KETONES Negative Negative [facility] SPECIFIC GRAVITY 1.010 1.005 - 1.030 [facility] BLOOD Negative Negative [facility] PH 7.0 5.0 - 8.0 [facility] Protein-UA Negative Negative [facility] NITRITE Negative Negative [facility] Leukocyte esterase, ur 1+(A) Negative [facility] Urine (Urine) 06/16/2019 10: 34 AM EST 06/16/2019 10:40 AM EST Shola Torres MD URINE ORDERABLES Fi nal Result Performing Organization Address City/State/[facility] Co de Phone Number [address] [address] * (ABNORMAL) Renal panel (06/16/2019 10:34 AM EST) SODIUM 141 133 - 146 mmol/L [facility] POTASSIUM 4.6 3.3 - 5.1 mmol/L [facility] CHLORIDE 106 96 - 108 mmol/L [facility] CO2 23 21 - 35 mmol/L [facility] GLUCOSE 88 70 - 99 mg/dL [facility] BUN 15 6 - 19 mg/dL [facility] CREATININE 0.70 0.5 - 1.5 mg/dL [facility] CALCIUM 10.6(H) 8.4 - 10.3 mg/dL [facility] PHOSPHORUS 2.3(L) 2.7 - 4.5 mg/dL [facility] ALBUMIN 4.2 3.9 - 4.8 g/dL [facility] EGFR 93 >59 mL/min/1.7 3m2 [facility] Comment:If patient is black, multiply result by 1.159. Estimated glomerular filtration rate calculated using the CKD-EPI equation. ANION GAP 17 10 - 20 mmol/L [facility] Blood 06/16/2019 10:3 4 AM EST 06/16/2019 10:40 AM EST Shola Torres MD LAB BLOOD ORDERABLE S Final Result [facility] [address] [place] [address] documented in this encounter Visit Diagnoses Diagnosis Hematuria syndrome- Primary Hematuria, unspecified documented in this encounter Care Teams Billiard Parlor Manager Relationship Specialty Start Date End Date Gabby Puri MD [address] [place] [id number] PCP - General Internal Medicine 05/29/17 01/19/25 Liz Castro MD [address] [place] [address] [place] [address] PCP - General Internal Medicine 01/20/25 documented as of this encounter Additional Source Comments The information contained in this document represents components of the legal health record. It is not the complete legal health record.[facility]
--- NOTE | 2025-02-08 07:44 | A.OFFVIS_ITS ---
Vital Signs 02/08/25 07:45 Height 5 ft 3 in Weight 217 lb BMI 38.4 Intake Visit Reasons: New patient Annual/ DO not RS Intake Note: No concern Dry Mixer Required: No Information Interpreted: non-clinical & clinical Senior Manufacturing Test Engineer: Senior Manufacturing Test Engineer Present (Elsa EARLY) Accompanied by: Self / Same As Patient Allergies pregabalin (From Lyrica) Adverse Reaction (Verified 02/08/25 07:49) drowsiness Post menopausal: Yes HPI Comments Details: Presenting for annual exam. No complaints. 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 Hyperparathyroidism Surgical History (Updated 02/08/25 @ 07:51 by Elsa Walker CMA) S/P thyroid surgery No pertinent past surgical history Family History (Updated 02/08/25 @ 07:52 by Elsa Walker CMA) Mother Rheumatoid arthritis Social History (Updated 02/08/25 @ 07:52 by Elsa Walker CMA) Household Members: Spouse and Family Housing: House Alcohol intake: never Patient Tobacco Use Status: Never used Tobacco e-Cigarette/Vaping Use: Never Used Second Hand Smoke Exposure: No service: No Current occupational status: disabled 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, 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 Sexually active: Yes Sexual orientation: Straight/Heterosexual Gender identity: Female Cognitive needs: No Hearing needs: Yes Vision needs: Yes Female Reproductive History Menstrual Menopause type: natural Total pregnancies: 4 Full term: 4 Number of Living Children: 4 Date of Mammogram: 07/29/24 Review of Systems Const All systems reviewed & are unremarkable except as noted in HPI and below Card Reports as per HPI Resp Reports as per HPI GI Reports as per HPI and Reports no additional complaints Reports as per HPI Physical Exam Vital Signs: BMI result Body Mass Index 38.4 Const General: cooperative, healthy appearing and comfortable Chest Chest palpation & inspection: normal inspection of the chest and normal palpation of entire chest wall Breast/axilla inspection: normal inspection of the breasts and normal inspection of the axillae Breast/axilla palpation: normal palpation of the breasts, normal palpation of the axillae and no axillary lymphadenopathy Resp Effort & Inspection: normal respiratory effort Auscultation: clear to auscultation bilaterally Percussion: percussion normal Cardio Palpation: normal PMI Rate: regular rate Rhythm: regular rhythm Heart sounds: no murmurs and no rubs Peripheral pulses: Peripheral pulses 2+ throughout GI Inspection: Yes normal to inspection Palpation (GI): Soft to palpation, nontender, no guarding, not rigid and No hepatosplenomegaly present Percussion: Yes normal to percussion Auscultation: normal bowel sounds Rectal Exam - Female: deferred General: Yes bladder normal to palpation External Female Exam: No lesion Speculum Exam - Vagina: normal appearance of the vagina, normal palpation, normal vaginal discharge and not erythematous Speculum Exam - Cervix: normal appearance of the cervix and normal palpation Bimanual exam- vagina & uterus: normal bimanual exam, normal palpation, uterine size normal, bladder normal to palpation, consistency normal and normal palpation Bimanual Exam- Adnexa, other: normal adnexae, no masses and no tenderness Assessment & Plan Assessment & Plan (1) Well woman exam: Code(s): Z01.419 - Encounter for gynecological examination (general) (routine) without abnormal findings Category: Medical Plan: Co testing not indicated since the patient 's age is above 65 with no history of abnormal Pap smears last 25 years, adequately screen for the last 10 years with no history of immunosuppression. Counseled the patient about the recommended dietary allowance of 1200 mg of Calcium & 800 IU of vitamin D. Instructions given to patient to schedule next Mammogram in 07/25 Referral to GI for screening colonoscopy was declined by the patient. Will order DEXA scan . The patient was instructed to perform monthly self-breast exams and to schedule a 2 week DEXA scan follow-up appointment and an annual exam in a year; All questions answered and the patient verbalized understanding. Orders: Orders XR DEXA axial skeleton Today Z78.0 - Asymptomatic menopausal state Coding Level of Care Code New Pt Prev Care >65yr (61264) Diagnoses Well woman exam Z01.419
[2025-02-08 07:45] VITALS: BMI 38.4
== END 2025-02-08 08:29 | disposition home or self-care (01) ==
LOC: HO.HWS 07:39
PROVIDERS: PCP Internal Medicine; Visit Provider Obstetrics & Gynecology
DX: Z01.419 Encounter for gynecological examination (general) (routine) without abnormal findings (principal)
CPT/HCPCS: 99387; 99459

== ENCOUNTER → 2025-02-08 07:39 | Outpatient (BNVA) | payer MEDICARE, MEDICAID, SELFPAY | PROVIDERS: PCP Internal Medicine; Visit Provider Obstetrics & Gynecology | DX: Z01.419 Encounter for gynecological examination (general) (routine) without abnormal findings (principal); Z78.0 Asymptomatic menopausal state | CPT/HCPCS: 99387 ==

== ENCOUNTER → 2025-03-30 14:33 | Outpatient (BNVA) | payer OTHER, SELFPAY | PROVIDERS: Visit Provider Physician Assistant | DX: S84.92XA Injury of unspecified nerve at lower leg level, left leg, initial encounter (principal); W01.0XXD Fall on same level from slipping, tripping and stumbling without subsequent striking against object, subsequent encounter | CPT/HCPCS: 99213 ==

== ENCOUNTER → 2025-05-11 09:21 | Outpatient (BNVA) | payer OTHER, SELFPAY | PROVIDERS: Visit Provider Physician Assistant | DX: S84.92XD Injury of unspecified nerve at lower leg level, left leg, subsequent encounter (principal); W01.0XXD Fall on same level from slipping, tripping and stumbling without subsequent striking against object, subsequent encounter | CPT/HCPCS: 99213 ==

== ENCOUNTER 2025-06-17 08:48 | Outpatient (AMB) | payer MEDICARE, MEDICAID, SELFPAY ==
[2025-06-17 08:55] VITALS: BP 118/74; PULSE 86; O2SAT 96; BMI 39.0
--- NOTE | 2025-06-17 08:55 | A.OFFPC_ITS ---
Vital Signs 06/17/25 08:55 Height 5 ft 3 in Weight 220 lb BMI 39.0 BP 118/74 Blood Pressure Location Lt brachial Position Sitting Pulse 86 Pulse Source Pulse Oximeter Pulse Oximetry (%) 96 Oxygen Delivery Method Room Air Intake Visit Reasons: PE - see comments Allergies pregabalin (From Lyrica) Adverse Reaction (Verified 06/17/25 08:57) drowsiness Medication List - Last Reconciled 06/17/25 by Liz Castro MD acetaminophen (Tylenol Extra Strength) 500 mg PO QID PRN albuterol sulfate 90 mcg/actuation (Ventolin HFA) 1 inh inhalation Q6H 30 days Arnuity Ellipta 100 mcg/actuation (fluticasone furoate) 1 inh inhalation DAILY NS hydroxychloroquine 200 mg PO BID omeprazole 20 mg PO DAILY 90 days Tobacco use date assessed: 12/14/24 Fall risk assessment: No Falls in past year Last assessed Fall Risk: 06/17/25 Dental Screening Dental Screen Date: 12/14/24 HPI HPI Comments History of Present Illness Details History of Present Illness The patient is a 70 year old female presenting for an annual physical exam. Gastroesophageal Reflux Disease: - The patient takes omeprazole, and repo rts that the medication is effective. Asthma: - The patient uses an inhaler and report s her breathing is okay with no issues. Obesity: - Patient has a high BMI of 39.0. - She attributes activity limitations to nerve damage in her leg. Left Leg Neuropathy: - The patient reports nerve damage in he r left leg resulting from a fall over three years ago. - This damage causes occasional knee jannette n and affects her mobility. Osteoporosis: - She was diagnosed with osteoporosis by her timber incisor operator. Vitamin D Deficiency: - The patient had low vitamin D in the p ast and was prescribed 5000 units weekly. - Her vitamin D levels were noted to be normal at her last check-up with the timber incisor operator. Health Maintenance: - Her last mammogram was in June and she is due for another one next month. - She saw her RUG DESIGNER in January Dr Lan , and was told she no longer needs routine visits unless a problem occurs. - She had a normal colonoscopy at age 52 and subsequently attempted Cologuard tests, one of which was lost; she declined further screening at this time. - She has declined the influenza vaccine for this season. Medical History: - Asthma - Gastroesophageal reflux disease - Obesity (BMI 39.0) - Left leg neuropathy secondary to a fal l over three years ago - History of vitamin D deficiency, now r esolved - Osteoporosis Social History: - Employment: The patient is retired. - Functional Status: Reports limited act ivity due to nerve damage in her leg. - Living situation: Lives at home with t hree other family members. [place] of Care - Follows with a timber incisor operator. - Last saw her RUG DESIGNER, Dr. Lan, in Jan ust if this year, was told regular follow-ups are not necessary. 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 Sexual orientation: Straight/Heterosexual Gender identity: Female Cognitive needs: No Hearing needs: Yes Vision needs: Yes Questionnaire Thrive Questionnaire Date Thrive assessed: 12/14/24 What is your living situation today?: I have a steady place to live Within the past 12 months, did the food you bought not last and you didn't have the money to get more?: Never true Within the past 12 months, did you worry whether your food would run out before you got money to buy more?: Never true Do you have trouble paying for medicines?: No Do you have trouble getting transportation to medical appointments?: No Do you have trouble paying your heating and electricity bill?: No Do you have trouble taking care of your child, family member or friend?: No Do you have trouble with day-to-day activities such as bathing, preparing meals, shopping, managing finances, etc.?: No Are you currently unemployed and looking for a job?: No Are you interested in more education?: No Currently or been in a relationship where the following occur: No concerns reported THRIVE Score: 0 YONATAN-7 AMB Questionnaire YONATAN-7 Date YONATAN - 7 assessed: 12/14/24 Source: Developed by Drs. Man Allison, Sonia Gandara, Livan Boyer and colleagues, with an educational autumn from [employer]. Review of Systems Narrative Review of Systems - General: No fever no chills - Neurological: No headaches no dizziness - Ear nose throat: No sore throat no hearing difficulty no ear pain - Cardiovascular: No syncope, no chest pain, no palpitations - Gastrointestinal: No nausea vomiting or diarrhea - Endocrine: No polyuria polydipsia no heat intolerance - Genitourinary: No dysuria - Skin: No new complaints Physical exam (Primary Care) Vital Signs: Last Vital Signs Pulse 86 06/17/25 08:55 BP 118/74 06/17/25 08:55 Pulse Ox 96 06/17/25 08:55 Oxygen Delivery Method Room Air 06/17/25 08:55 BMI result Body Mass Index 39.0 Tobacco/Smoking Status: Tobacco use Status Tobacco use date assessed 12/14/24 06/17/25 08:57 Patient Tobacco Use Status Never used Tobacco 06/17/25 08:57 e-Cigarette/Vaping Use Never Used 06/17/25 08:57 Thrive Assessment: Date of Thrive Assessment Date Thrive assessed 12/14/24 06/17/25 08:57 Currently or been in a relationship where the following occur: No concerns reported Narrative Diagnostic results - Vitals: Blood pressure 118/74 mmHg. - Anthropometrics: BMI is 39.0. - Past Labs: Vitamin D level was previously low but is now normal per timber incisor operator. - Past Screenings: Mammogram was performed in June. A colonoscopy was performed at age 52. Physical Exam General: Cooperative, healthy appearing, comfortable, no acute distress Orientation: Patient oriented x3 Head: Normal to inspection Ears: Within normal limit visually Nose: Normal external nose present Face and sinus: Normal facial exam Eyes: Appearance normal, extraocular movement intact pupils reactive Neck: Normal visual inspection and supple Respiratory: Normal respiratory effort and able to speak in complete sentences. Clear to auscultation, no stridor, asthma is controlled, no wheezing Cardiovascular: S1 and S2 RRR GI: Normal to inspection. Soft to palpation and nontender Skin: Turgor normal, no acute findings Neuro: Patient oriented x3, motor sensory intact, balance intact, tandem failed Extremities: Normal to inspection, joints mobile, left knee is painful [ chronic ] . Coding Level of Care Code Est Pt Level 3 (61320) Est Pt Prev Care >65y(98631) Diagnoses Encounter for general adult medical examination with abnormal findings Z00.01 Moderate persistent asthma without complication J45.40 Asthma complication type: uncomplicated Rheumatoid arthritis of other site with positive rheumatoid factor M05.7A Rheumatoid arthritis location: other site Rheumatoid factor presence: with rheumatoid factor Complex regional pain syndrome i of left lower limb G90.522 Chronic GERD K21.9 Class 2 obesity due to excess calories without serious comorbidity with body mass index (BMI) of 39.0 to 39.9 in adult E66.09; Z68.39 Body mass index: BMI 39.0-39.9 Obesity classification: adult class 2 (BMI 35 - 39.9) Serious obesity comorbidity presence: without serious comorbidity Assessment & Plan Assessment & Plan (1) Encounter for general adult medical examination with abnormal findings: Code(s): Z00.01 - Encounter for general adult medical examination with abnormal findings Category: Medical (2) Asthma, moderate persistent: Code(s): J45.40 - Moderate persistent asthma, uncomplicated Category: Medical Qualifiers: Asthma complication type: uncomplicated Qualified Code(s): J45.40 - Moderate persistent asthma, uncomplicated (3) Rheumatoid arthritis: Code(s): M06.9 - Rheumatoid arthritis, unspecified Category: Medical Qualifiers: Rheumatoid arthritis location: other site Rheumatoid factor presence: with rheumatoid factor Qualified Code(s): M05.7A - Rheumatoid arthritis with rheumatoid factor of other specified site without organ or systems involvement (4) Complex regional pain syndrome i of left lower limb: Code(s): G90.522 - Complex regional pain syndrome I of left lower limb Category: Medical (5) Chronic GERD: Code(s): K21.9 - Gastro-esophageal reflux disease without esophagitis Category: Medical (6) Obesity due to excess calories: Code(s): E66.09 - Other obesity due to excess calories Category: Medical Qualifiers: Body mass index: BMI 39.0-39.9 Obesity classification: adult class 2 (BMI 35 - 39.9) Serious obesity comorbidity presence: without serious comorbidity Qualified Code(s): E66.09 - Other obesity due to excess calories; Z68.39 - Body mass index [BMI] 39.0-39.9, adult Plan Patient Instructions - You will need to get fasting blood work done. - The blood tests will check your blood counts, kidney and liver function, cholesterol, blood sugar, thyroid level, vitamin D, and B12. - You are due for your next mammogram in June. - Please follow up in the office in six months. Orders: Orders Comprehensive [place]. Panel Fast Today E66.09 - Other obesity due to excess calories, G90.522 - Complex regional pain syndrome I of left lower limb, J45.40 - Moderate persistent asthma, uncomplicated, K21.9 - Gastro-esophageal reflux disease without esophagitis, M05.7A - Rheumatoid arthritis with rheumatoid factor of other specified site without organ or systems involvement, Z00.01 - Encounter for general adult medical examination with abnormal findings, Z68.39 - Body mass index [BMI] 39.0-39.9, adult Lipid Panel Today E66.09 - Other obesity due to excess calories, G90.522 - Complex regional pain syndrome I of left lower limb, J45.40 - Moderate persistent asthma, uncomplicated, K21.9 - Gastro-esophageal reflux disease without esophagitis, M05.7A - Rheumatoid arthritis with rheumatoid factor of other specified site without organ or systems involvement, Z00.01 - Encounter for general adult medical examination with abnormal findings, Z68.39 - Body mass index [BMI] 39.0-39.9, adult TSH reflex Free T4 Today E66.09 - Other obesity due to excess calories, G90.522 - Complex regional pain syndrome I of left lower limb, J45.40 - Moderate persistent asthma, uncomplicated, K21.9 - Gastro-esophageal reflux disease without esophagitis, M05.7A - Rheumatoid arthritis with rheumatoid factor of other specified site without organ or systems involvement, Z00.01 - Encounter for general adult medical examination with abnormal findings, Z68.39 - Body mass index [BMI] 39.0-39.9, adult Vitamin B12 Today E66.09 - Other obesity due to excess calories, G90.522 - Complex regional pain syndrome I of left lower limb, J45.40 - Moderate persistent asthma, uncomplicated, K21.9 - Gastro-esophageal reflux disease without esophagitis, M05.7A - Rheumatoid arthritis with rheumatoid factor of other specified site without organ or systems involvement, Z00.01 - Encounter for general adult medical examination with abnormal findings, Z68.39 - Body mass index [BMI] 39.0-39.9, adult Complete Blood Count Auto Diff Today E66.09 - Other obesity due to excess calories, G90.522 - Complex regional pain syndrome I of left lower limb, J45.40 - Moderate persistent asthma, uncomplicated, K21.9 - Gastro-esophageal reflux disease without esophagitis, M05.7A - Rheumatoid arthritis with rheumatoid factor of other specified site without organ or systems involvement, Z00.01 - Encounter for general adult medical examination with abnormal findings, Z68.39 - Body mass index [BMI] 39.0-39.9, adult Vitamin D 25-OH (D2 and D3) Today E66.09 - Other obesity due to excess calories, G90.522 - Complex regional pain syndrome I of left lower limb, J45.40 - Moderate persistent asthma, uncomplicated, K21.9 - Gastro-esophageal reflux disease without esophagitis, M05.7A - Rheumatoid arthritis with rheumatoid factor of other specified site without organ or systems involvement, Z00.01 - Encounter for general adult medical examination with abnormal findings, Z68.39 - Body mass index [BMI] 39.0-39.9, adult
--- OUTSIDE RECORDS SUMMARY | 2025-06-17 09:05 | XMS_ITS | Clinical Summary ---
Author Organization [facility] Address [address] [place] [id number] Phone Care Team Providers Care Inbound Call Center Representative Name Role Phone Liz Castro MD Primary Care Provider [phone] Allergies No known active allergies Medications omeprazole [...] and low potassium diet. Close follow-up with marking machine tender as scheduled. Hypercalcemia 11/29/2018 Overview (04/16/2021): Last Assessment & Plan: Close follow-up with her charging board operator as scheduled Drug therapy finding 11/06/2017 04/17/2023 Overview (04/17/2023): Last Assessment & Plan: Take exactly as prescribed. Daily sun protection. Follow terrazzo installer exactly as scheduled to monitor for ocular side effects Fibromyalgia 01/28/2017 Overview (04/16/2021): Follows with [facility]ology Gastroesophageal reflux disease 01/28/2017 Osteopenia 01/28/2017 Vitamin D deficiency 01/28/2017 Arthritis 12/23/2016 Overview (04/16/2021): Follows with [facility] Dr. Anderson Generalized osteoarthritis 12/23/2016 Overview (04/16/2021): Follows with [facility] [...] this topic Insurance [place] [facility] Care Teams Inbound Call Center Representative Relationship Specialty Start Date End Date Liz Castro MD [address] [place] [id number] PCP - General Internal Medicine 04/21/24
== END 2025-06-17 09:28 | disposition home or self-care (01) ==
LOC: HO.HMCC 08:48
PROVIDERS: PCP Internal Medicine; Visit Provider Internal Medicine
DX: Z00.01 Encounter for general adult medical examination with abnormal findings (principal); J45.40 Moderate persistent asthma, uncomplicated; M05.7A Rheumatoid arthritis with rheumatoid factor of other specified site without organ or systems involvement; G90.522 Complex regional pain syndrome I of left lower limb; K21.9 Gastro-esophageal reflux disease without esophagitis; E66.09 Other obesity due to excess calories; Z68.39 Body mass index [BMI] 39.0-39.9, adult

== ENCOUNTER → 2025-06-17 08:48 | Outpatient (BNVA) | payer MEDICARE, MEDICAID, SELFPAY | PROVIDERS: PCP Internal Medicine; Visit Provider Internal Medicine | DX: Z00.01 Encounter for general adult medical examination with abnormal findings (principal); J45.40 Moderate persistent asthma, uncomplicated; M05.7A Rheumatoid arthritis with rheumatoid factor of other specified site without organ or systems involvement; G90.522 Complex regional pain syndrome I of left lower limb; K21.9 Gastro-esophageal reflux disease without esophagitis; E66.09 Other obesity due to excess calories; Z68.39 Body mass index [BMI] 39.0-39.9, adult | CPT/HCPCS: 99397 ==